=== PATIENT | male | born 1955 | race Caucasian/White ===

== ENCOUNTER 2020-08-22 13:19 | Outpatient (REF) | payer MEDICAID, SELFPAY | END 2020-08-22 13:20 | disposition home or self-care (01) | LOC: HO.LAB 13:19 | PROVIDERS: Visit Provider Internal Medicine | DX: Z20.828 Contact with and (suspected) exposure to other viral communicable diseases (principal) | CPT/HCPCS: U0003 ==

== ENCOUNTER 2020-08-28 13:30 | Outpatient (REF) | payer MEDICAID, SELFPAY | END 2020-08-28 13:31 | disposition home or self-care (01) | LOC: HO.LAB 13:30 | PROVIDERS: Visit Provider Internal Medicine | DX: Z20.828 Contact with and (suspected) exposure to other viral communicable diseases (principal) | CPT/HCPCS: C9803; U0003 ==

== ENCOUNTER 2020-09-04 11:57 | Outpatient (REF) | payer MEDICAID, SELFPAY | END 2020-09-04 11:58 | disposition home or self-care (01) | LOC: HO.LAB 11:57 | PROVIDERS: Visit Provider Internal Medicine | DX: Z20.828 Contact with and (suspected) exposure to other viral communicable diseases (principal) | CPT/HCPCS: C9803; U0003 ==

== ENCOUNTER 2020-09-10 16:50 | Outpatient (REF) | payer MEDICAID, SELFPAY | END 2020-09-10 16:51 | disposition home or self-care (01) | LOC: HO.LAB 16:50 | PROVIDERS: Visit Provider Internal Medicine | DX: Z20.828 Contact with and (suspected) exposure to other viral communicable diseases (principal) | CPT/HCPCS: C9803; U0003 ==

== ENCOUNTER 2020-09-25 16:22 | Outpatient (REF) | payer MEDICAID, SELFPAY | END 2020-09-25 16:23 | disposition home or self-care (01) | LOC: HO.LAB 16:22 | PROVIDERS: Visit Provider Internal Medicine | DX: Z20.828 Contact with and (suspected) exposure to other viral communicable diseases (principal) | CPT/HCPCS: C9803; U0003 ==

== ENCOUNTER 2023-07-01 13:19 | Inpatient (IN) | payer OTHER, SELFPAY ==
[2023-07-01] VITALS (7 sets, daily range): BP systolic 129–178; BP diastolic 69–86; PULSE 84–97; RESP 16–28; TEMP 36–38.4; O2SAT 86–93; BMI 39.5; BMI 40.5
--- NOTE | ~2023-07-01 | CT_ITS ---
EXAMINATION: CT HEAD WITHOUT CONTRAST CLINICAL INFORMATION: Fall, unknown head strike/LOC. COMPARISON: None available. TECHNIQUE: Contiguous axial imaging was performed from the skull base to vertex without intravenous administration of contrast. This CT examination was performed using dose optimization techniques as appropriate, variously including the following: *Automated exposure control *Adjustment of mA and/or kV according to patient size (this includes techniques or standardized protocols for targeted exams where dose is matched to indication/reason for exam; i.e. extremities or head) *Use of iterative reconstruction technique DLP: 809 mGy-cm FINDINGS: There is no acute intra-axial, extra-axial bleed, masses or midline shift. There is no acute infarction evolution. There is no edema. The interiano to white matter consolidation is is maintained normal. The lateral ventricles are symmetrical in size and configuration without enlargement. Bone windows reveal no calvarial abnormality. There is no scalp soft tissue abnormality. Bone windows reveal diffuse mucoperiosteal thickening of bilateral maxillary, ethmoid, right frontal and bilateral sphenoid sinuses. CT/CT head/brain wo IV con IMPRESSION: No acute intracranial process seen.
--- NOTE | ~2023-07-01 | XR_ITS ---
EXAMINATION: XR CHEST CLINICAL INFORMATION: Shortness of breath; Covid positive COMPARISON: None available. TECHNIQUE: Frontal view of the chest was obtained. FINDINGS: The lungs are normally expanded. There is mild ill-defined opacity in the left lower lung, partially obscuring the cardiac border, which may represent mild infiltrate. The lungs are otherwise clear. There is no pleural disease. The mediastinum is stable. There is no vascular congestion. XR/XR chest 1V IMPRESSION: Mild patchy infiltrate in the left lower lung, suspicious for pneumonia.
--- NOTE | ~2023-07-01 | XR_ITS ---
EXAMINATION: XR CHEST CLINICAL INFORMATION: Follow-up hypoxia. Covid infection. COMPARISON: Previous chest x-ray 07/01/2023 TECHNIQUE: Frontal view of the chest was obtained. FINDINGS: The cardiac and mediastinal contours are stable. The lung volumes are low. There is question of a small left base infiltrate. This is not appreciably changed from previous exam. No pleural effusion or pneumothorax. Degenerative changes of the spine. XR/XR chest 1V IMPRESSION: Question small left base infiltrate similar to previous exam.
--- NOTE | 2023-07-01 13:51 | ECG_ITS ---
Test Reason : sob/covid Blood Pressure : / mmHG Vent. Rate : 088 BPM Atrial Rate : 088 BPM P-R Int : 142 ms QRS Dur : 076 ms QT Int : 318 ms P-R-T Axes : 023 057 037 degrees QTc Int : 384 ms Normal sinus rhythm Normal ECG No previous ECGs available Referred By: Mari Alvarez Electronically Signed By:FLORENCIO BASS
[2023-07-01] MEDS: Acetaminophen 325 MG TABLET 975 MG PO (13:54)
--- NOTE | 2023-07-01 14:07 | ED_ITS ---
HPI - URI/Sore Throat General Chief Complaint: Upper Respiratory Symptoms Stated Complaint: DIFF BREATHING,FLIPPED OUT OF CHAIR,+COVID Time Seen by Provider: 07/01/23 13:50 Source: patient and EMS Mode of arrival: EMS Limitations: no limitations History of Present Illness HPI Narrative: 67 yo male with PMHx of CHF, HTN, DM presents to the ED via EMS complaining of fevers, congestion difficulty breathing, and dry cough, worsening since testing positive for COVID yesterday. Today he reports trying to sit in his chair when he slipped onto his buttocks. He does not know if he hit his head or lost consciousness. He reports his friend called EMS. Denies headache, dizziness, vision changes, chest pain, neck pain, back pain, abdominal pain, LE pain or edema. Not on LOC. Not on home O2. Related Data Allergies Allergy/AdvReac Type Severity Reaction Status Date / Time No Known Allergies Allergy Verified 07/01/23 13:51 Review of Systems 2 Review of Systems: Constitutional: + fever, No chills, No fatigue, No malaise, + generalized weakness ENT/Mouth: No ear pain, No hearing loss,? No nasal congestion, No sinus pain, No rhinorrhea Eyes: No eye pain, No swelling, No redness, No vision changes, No foreign body, No discharge Cardio: No chest pain, No palpitations, No dyspnea on exertion, No orthopnea, No edema Respiratory: + SOB, + cough, No sputum, No wheezing, + dyspnea, No hemoptysis, No smoke exposure GI: No nausea, No vomiting, No hematemesis, No abdominal pain, No diarrhea, No constipation, No hematochezia, No melena : No irregular bleeding, No dysuria, No frequency, No urgency, No hesitancy, No hematuria, No flank pain MSK: No back pain, No neck pain, No joint pain, No myalgias Skin: No skin lesions, No rashes Neuro: No weakness, No numbness, No paresthesias, No LOC, No dizziness, No headache Psych: No anxiety/panic, No depression, No SI/HI, No AH/VH Heme/Lymph: No bruising, No bleeding, No lymphadenopathy Endocrine: No Polyuria, No Polydipsia, No Temperature Intolerance Yes all other systems are reviewed and are negative [facility] Past Medical History Attestation statement: The following information was validated with the patient. Source: old records reviewed and nursing notes reviewed Social History Social History Advance Directives: No Advance Directives Information Provided: No Physical Exam 2 Vital Signs: Vital Signs: Last Vital Signs Temp 98.8 F 07/01/23 16:45 Pulse 86 07/01/23 16:45 Resp 22 H 07/01/23 16:45 BP 129/69 07/01/23 16:45 Pulse Ox 92 07/01/23 16:45 O2 Del Method Nasal Cannula 07/01/23 16:45 O2 Flow Rate 3 07/01/23 16:45 BMI result Body Mass Index 39.5 Vital signs notable for fever. Not tachycardic. General: Diaphoretic. Speaking in complete sentences. No acute distress. On 3L O2. Skin: Warm and dry. No rashes or lesions. Head: Normocephalic, atraumatic. EENT: Injected conjunctiva. Sclera is anicteric. PERRLA. EOM intact. Nasal septum is midline. Nares patent bilaterally. Moist mucous membranes. Controlling secretions. Neck: Supple without LAD. Normal ROM. Trachea midline.? Cardiac: Chest wall symmetric. Regular rate and rhythm. S1 and S1 appreciated. No MRG. No JVD. Lungs: CTA bilaterally. No rales, rhonchi, or wheezes. Normal respiratory effort without accessory muscle use. Abdomen: No visible lesions or scars. Soft, non-tender, non-distended. No rebound tenderness or guarding. Normoactive BS x4. Ext: Upper and lower extremities atraumatic. Full ROM throughout. Strength 5/5 throughout. Capillary refill <2 seconds in all extremities. Pulses 2+ equal and bilateral. No edema, cyanosis, or clubbing. Neuro: Alert and oriented x3. Normal speech. CN 2-12 grossly intact. Strength 5/5 intact throughout.?Neurovascular intact distally. Psych: Appropriate mood and affect. Responds appropriately to questions.? Course Course Course Narrative: 1410-- EKG showing normal sinus rhythm, no acute ischemc process. 1446-- No leukocytosis, anemia (no priors to compare to). No electrolyte abnormalities requiring intervention. 1458-- Ddimer of 233. Age adjusted ddimer calculated and determined to be 89 >> VTE unlikely. CTA not indicated. > Troponin negative. BNP WNL. Lactic acid WNL. > COVID positive. Patient likely tachycardic and hypoxic secondary to viral illness. I do no not suspect sepsis at this time. 1646-- At this time, infection suspected. CXR showing possible PNA > abx ordered. Medications Administered Discontinued Medications Generic Name Dose Route Start Last Admin Trade Name Freq PRN Reason Stop Dose Admin Acetaminophen 975 mg 07/01/23 13:51 07/01/23 13:54 Acetaminophen 325 Mg Tablet PO 07/01/23 13:52 975 mg ONCE ONE Administration Medical Decision Making Medical Decision Making [facility] Narrative: 1407-- 67 yo male, COVID +, presenting with fevers, dyspnea, and cough x1 day PE: Diaphoretic. O2 sat 93 on 3L O2. Speaking in complete sentences. No signs of respiratory distress. Lungs CTA b/l. RRR. No LE edema. Negative parul's sign. Concern for covid, viral syndrome, bronchitis, pneumonia, PE, acute on chronic CHF, ACS, arrhythmia, electrolyte abnormality. Low suspicion for DVT, pnuemothorax, dissection, chest wall trauma, or flail chest. Plan: EKG, labs, ddimer, serology, imaging Differential Diagnosis Differential Diagnoses: The differential diagnosis associated with the presentation includes Concern for covid, viral syndrome, bronchitis, pneumonia, PE, acute on chronic CHF, ACS, arrhythmia, electrolyte abnormality. Low suspicion for DVT, pnuemothorax, dissection, chest wall trauma, or flail chest. Admission/Observation Consideration of admission/observation: Escalation of care including admission/observation considered This COVID + patient who is acutely hypoxic and febrile will be admitted. Consult Healthcare Provider Management of the patient was discussed with: Hospitalist (Dr. Yi Richter) Lab Data [facility] Lab Attestation statement: I reviewed the patient's lab results. As above. 07/01/23 14:20 07/01/23 14:20 Labs: Lab Results 07/01/23 07/01/23 07/01/23 Range/Units 14:19 14:20 14:27 WBC 9.1 (4.8-10.8) X10*3/uL RBC 4.25 L (4.60-5.80) X10*6/uL Hgb 12.7 L (14.0-18.0) g/dl Hct 39.0 L (42.0-52.0) % MCV 91.8 (80.0-98.0) fL MCH 29.9 (27.0-33.0) pg MCHC 32.6 (31.0-36.0) g/dl RDW 14.3 (11.0-16.0) % Plt Count 164 (160-400) X10*3/uL MPV 9.7 (9.4-12.4) fL Immature Gran % (Auto) 0.8 H (0.0-0.4) % Neut % (Auto) 84.5 H (45-73) % Lymph % (Auto) 6.6 L (20-40) % [place] % (Auto) 7.4 (2-11) % Eos % (Auto) 0.4 (0-4) % Baso % (Auto) 0.3 (0-2) % Lymph # (Auto) 0.6 L (1.2-4.9) X10*3/uL [place] # (Auto) 0.7 (0.1-1.2) X10*3/uL Eos # (Auto) 0.0 (0.0-0.4) X10*3/uL Baso # (Auto) 0.0 (0.0-0.2) X10*3/uL Abs Immat Gran (auto) 0.07 H (0.00-0.03) X10*3/uL Absolute Neuts (auto) 7.7 (2.0-8.3) x10*3/uL Absolute Nucleated RBC 0.000 (0.0-0.012) X10*3/uL Nucleated RBC % (auto) 0.0 (0.0-0.2) /100WBC PT 12.8 (11.1-13.3) SEC INR 1.1 (0.9-1.1) D-Dimer High Sensitivty 233 NG/ML Sodium 137 (135-145) mmol/L Potassium 4.1 (3.3-5.1) mmol/L Chloride 101 (96-108) mmol/L Carbon Dioxide 28 (22-29) mmol/L Anion Gap 12 (12-20) BUN 12 (9-16) mg/dL Creatinine 1.34 (0.5-1.4) mg/dL Estim Creat Clear Calc 67.6 Estimated GFR 53 Random Glucose 189 H (60-115) mg/dL Lactic Acid 1.8 (0.5-2.0) mmol/L Calcium 9.8 (8.4-10.2) mg/dL Total Bilirubin 0.5 (0.0-1.0) mg/dL AST 16 (5-37) U/L ALT 18 (0-40) U/L Alkaline Phosphatase 43 (39-117) U/L Total Creatine Kinase 167 (38-174) U/L Troponin I High Sens 3.2 (<3.5-35.0) ng/L B-Natriuretic Peptide 34 (<100) pg/mL Total Protein 7.6 (6.5-8.0) g/dL Albumin 4.3 (3.5-5.0) g/dL COVID-19 (ARNIE) Positive A (Negative) COVID-19 Clin Com See Note Influenza Type A (SONYA) Negative (Negative) Influenza Type B (SONYA) Negative (Negative) Influenza A & B Note See Note Independent Interpretation I performed an independent interpretation of an: EKG (Normal sinus rhythm at rate of 88 bpm, QT of 318, no ischemic changes) and Plain X-Ray (Infiltrates noted to left lower lung, agree with radiologist's interpretation) Radiology Impression Discussion of test interpretation with radiology: I have reviewed the radiologist's reading. Radiologist Impression: XR chest 1V IMPRESSION: Mild patchy infiltrate in the left lower lung, suspicious for pneumonia. Independent Historian Clinical information obtained from an independent historian. History obtained from or confirmed by: EMS Prescription Management I considered prescription management with: Antibiotic Chronic Conditions Patient?s care impacted by: Diabetes and Hypertension Core Measures AMI core measures followed: Yes Measure exclusions: not indicated Discharge Plan Discharge Clinical Impression: COVID, Hypoxia, Pneumonia Patient Disposition: Admitted As Inpatient
--- NOTE | 2023-07-01 14:22 | PC.NURSE ---
diaphoretic in room, oxygen at 87-92% on 3L nasal cannula. iv established, labs drawn and sent
[2023-07-01 14:26] LABS: MANUAL DIFF FLAG NO
[2023-07-01 14:29] LABS: Basophils Percent Auto 0.3 % (0-2); Eosinophils Percent Auto 0.4 % (0-4); Hemoglobin 12.7 g/dl (14.0-18.0); Imm Gran Abs Auto 0.07 X10*3/uL (0.00-0.03); Imm Gran Pct Auto 0.8 % (0.0-0.4); Lymphocytes Absolute Auto 0.6 X10*3/uL (1.2-4.9); Lymphocytes Percent Auto 6.6 % (20-40); Mean Corpuscular HGB Conc 32.6 g/dl (31.0-36.0); Mean Corpuscular Hemoglobin 29.9 pg (27.0-33.0); Mean Corpuscular Volume 91.8 fL (80.0-98.0); Mean Platelet Volume 9.7 fL (9.4-12.4); Monocytes Absolute Auto 0.7 X10*3/uL (0.1-1.2); Monocytes Percent Auto 7.4 % (2-11); Neutrophils Absolute Auto 7.7 x10*3/uL (2.0-8.3); Neutrophils Percent Auto 84.5 % (45-73); Platelet Count 164 X10*3/uL (160-400); Red Blood Count 4.25 X10*6/uL (4.60-5.80); Red Cell Distribution Width 14.3 % (11.0-16.0); White Blood Count 9.1 X10*3/uL (4.8-10.8)
[2023-07-01 14:40] LABS: Lactic Acid 1.8 mmol/L (0.5-2.0)
[2023-07-01 14:44] LABS: Alanine Aminotransferase 18 U/L (0-40); Albumin Level 4.3 g/dL (3.5-5.0); Alkaline Phosphatase 43 U/L (39-117); Anion Gap 12 (12-20); Aspartate Amino Transferase 16 U/L (5-37); Bilirubin Total 0.5 mg/dL (0.0-1.0); Blood Urea Nitrogen 12 mg/dL (9-16); Calcium 9.8 mg/dL (8.4-10.2); Carbon Dioxide 28 mmol/L (22-29); Chloride 101 mmol/L (96-108); Creatinine Clr Calc Pharmacy 67.6; Estimated Glomerular Filt Rate 53; Glucose Random 189 mg/dL (60-115); Potassium 4.1 mmol/L (3.3-5.1); Sodium 137 mmol/L (135-145); Total Protein 7.6 g/dL (6.5-8.0)
[2023-07-01 14:50] LABS: B Type Natriuretic Peptide 34 pg/mL (<100)
[2023-07-01 14:51] LABS: Troponin-I High Sensitivity 3.2 ng/L (<3.5-35.0)
[2023-07-01 14:52] LABS: IDNOW Serial# BCCEAD1C; Influenza A Negative (Negative); Influenza B2 Negative (Negative)
[2023-07-01 14:55] LABS: D Dimer High Sensitivity 233 NG/ML
[2023-07-01 15:04] LABS: COVID-19 Test Positive (Negative); IDNOW Serial# 9DB6401D
[2023-07-01 16:51] LABS: INTERNATIONAL NORM RATIO 1.1 (0.9-1.1); Prothrombin Time 12.8 SEC (11.1-13.3)
--- NOTE | 2023-07-01 16:54 | PC.NURSE ---
alert and oriented, pt resting quietly in room. plan for admission. denies any pain or distress at this time
--- NOTE | 2023-07-01 16:56 | P.HPHOSP_ITS ---
History of Present Illness Date of Service: 07/01/23 Attending physician on admission: Amando Wilson Chief Complaint: SOB Pt is a 67-year-old male with a PMH significant for?wkt-pndntse-bbfxfgbox diabetes type 2, HTN, HLD, arthritis of the back, unspecified CHF, and depression who presents to the ED with?worsening SOB, difficulty breathing, and nonproductive cough x2 days. Patient states his symptoms began upon waking 2 days prior when he felt congested and had a nonproductive cough, runny nose, and subjective fever and chills. SOB, difficulty breathing, and cough progressively worsened. Patient took an at home COVID test earlier this morning and tested positive. He then presented to the ED today d/t his difficulty breathing. Patient has a previous 5 pack year smoking history, quit 15 years ago. Does not carry a diagnosis of either asthma or COPD, not on home inhalers or home O2. Denies chest pain/pressure, palpitations. No noticeable increase in fatigue or tiredness. Denies nausea, vomiting, diarrhea, abdominal pain. The patient lives in a sober home with 28 other residence. In the ED the patient was febrile at 01:01 0.2, tachypneic up to 28, elevated heart rate up to 97, and hypertensive up to 151/86, satting as low as 86% O2 on RA. Patient placed on 3 L NC with improvement to 92% O2. Labs were significant for H&H of 12.7/39.0, random glucose 189. No leukocytosis. Electrolytes WNL. Lactic acid WNL 01.8. Hepatic function WNL. CPK WNL at 167. Troponin negative. BNP WNL at 34. Patient tested positive for COVID. Patient tested negative for influenza types A and B. Coags normal. CXR showed mild patchy infiltrate in the lower left lung suspicious for pneumonia. CT of head showed no acute intracranial process. EKG demonstrated normal sinus rhythm without evidence of ST elevations or depressions. Pt was treated with acetaminophen, ceftriaxone, and azithromycin. Pt will be admitted to the hospital for treatment and further evaluation of acute hypoxic respiratory failure in the setting of COVID infection. Review of Systems 2 Review of Systems: Increasing shortness of breath and difficulty breathing x2 days Nonproductive cough Subjective fever, chills Rhinorrhea Denies nausea, vomiting, diarrhea, abdominal pain No chest pain/pressure, palpitations Yes all other systems are reviewed and are negative PMFSH Social History Household Members: Other Housing: Other Housing Other:: sober house Do you presently have visiting nurse or other home services: No Patient Tobacco Use Status: Former Tobacco user Tobacco use type: Cigarette Smoked in Last 30 Days: No e-Cigarette/Vaping Use: Never Used Use of substances other than those prescribed or required for medical reasons: Yes Substance Use Type: Former Substance User Last Used Substance Other:: 5 years ago Currently Displaying Signs/Symptoms of Drug Intoxication Withdrawal: No Have you been hit, kicked, punched, or otherwise hurt by someone within the past year? If so, by whom?: No Do you feel safe in your current relationship?: Yes Is there a partner from a previous relationship who is making you feel unsafe now?: No Are you made to feel afraid or neglected: No Advance Directives: No Advance Directives Information Provided: No Do you have thoughts of harming others: None Do you have a plan to hurt others: No Plan Recently lost weight without trying: No Eating poorly because of decreased appetite: No Nutrition Risks: No Nutritional Risk Poor oral hygiene: No service: No Meds Allergies Allergy/AdvReac Type Severity Reaction Status Date / Time No Known Allergies Allergy Verified 07/01/23 13:51 Active Medications: Current Medications Ceftriaxone Sodium 1 gm/ (Sodium Chloride) 50 mls @ 100 mls/hr IV ONCE ONE Stop: 07/01/23 17:14 Azithromycin 500 mg/ Sodium (Chloride) 250 mls @ 125 mls/hr IV ONCE ONE Stop: 07/01/23 18:44 Home Medications Medication Instructions Recorded Confirmed Last Taken Type acetaminophen 500 mg tablet 1,000 mg PO TID PRN PAIN 07/01/23 07/01/23 06/30/23 History amitriptyline 25 mg tablet 25 mg PO BEDTIME 07/01/23 07/01/23 06/30/23 History celecoxib 200 mg capsule 200 mg PO DAILY 07/01/23 07/01/23 06/30/23 History cholecalciferol (vitamin D3) 25 25 mcg PO DAILY 07/01/23 07/01/23 06/30/23 History mcg (1,000 unit) capsule (Vitamin D3) escitalopram oxalate 10 mg tablet 10 mg PO DAILY 07/01/23 07/01/23 06/30/23 History fenofibric acid (choline) 135 mg 135 mg PO DAILY 07/01/23 07/01/23 06/30/23 History capsule,delayed release labetalol 200 mg tablet 200 mg PO BID 07/01/23 07/01/23 06/30/23 History lurasidone 40 mg tablet 40 mg PO DAILY 07/01/23 07/01/23 06/30/23 History metformin 500 mg tablet 500 mg PO BID 07/01/23 07/01/23 06/30/23 History methocarbamol 750 mg tablet 750 mg PO DAILY 07/01/23 07/01/23 06/30/23 History mometasone 0.1 % topical ointment 1 appl topical BID 07/01/23 07/01/23 06/30/23 History multivitamin (One Daily 1 tab PO DAILY 07/01/23 07/01/23 06/30/23 History Multivitamin tablet) nifedipine 30 mg tablet,extended 30 mg PO DAILY 07/01/23 07/01/23 06/30/23 History release 24 hr oxybutynin chloride 10 mg 10 mg PO DAILY 07/01/23 07/01/23 06/30/23 History tablet,extended release 24 hr tacrolimus 0.1 % topical ointment 1 appl topical BID 07/01/23 07/01/23 06/30/23 History thiamine HCl (vitamin B1) 100 mg 100 mg PO DAILY 07/01/23 07/01/23 06/30/23 History tablet trazodone 100 mg tablet 200 mg PO BEDTIME insomina 07/01/23 07/01/23 06/30/23 History Physical Exam 2 Vital Signs and Narrative: Vital Signs: Last Vital Signs Temp 98.8 F 07/01/23 16:45 Pulse 86 07/01/23 16:45 Resp 22 H 07/01/23 16:45 BP 129/69 07/01/23 16:45 Pulse Ox 92 07/01/23 16:45 O2 Del Method Nasal Cannula 07/01/23 16:45 O2 Flow Rate 3 07/01/23 16:45 BMI result Body Mass Index 39.5 Constitutional: Alert, in no acute distress. Mental Status: Oriented to person, place and time. Eyes: Pupils are equal, round, and reactive to light. Ear, Nose, and Throat: Oropharynx clear, mucous membranes moist. Ears and nose without deformities. Trachea midline. Respiratory: Clear to auscultation bilaterally. No wheezing, rales, or rhonchi. Cardiovascular: S1, S2 regular. No murmurs, rubs, or gallops. Gastrointestinal: Abdomen soft, non-tender, obese. Normal bowel sounds. Neurologic: Cranial nerves II-XII are grossly intact bilaterally. No focal neurological deficits. Moves all extremities spontaneously. Skin: Warm, dry. Musculoskeletal: No cyanosis or clubbing. Extremities: No edema. Psychiatric: Normal mood and affect. Results Labs 07/01/23 14:20 07/01/23 14:20 Labs: Laboratory Results - last 24 hr 07/01/23 07/01/23 07/01/23 14:19 14:20 14:27 MCV 91.8 MCH 29.9 MCHC 32.6 RDW 14.3 Plt Count 164 MPV 9.7 Immature Gran % (Auto) 0.8 H Neut % (Auto) 84.5 H Lymph % (Auto) 6.6 L [place] % (Auto) 7.4 Eos % (Auto) 0.4 Baso % (Auto) 0.3 Lymph # (Auto) 0.6 L [place] # (Auto) 0.7 Eos # (Auto) 0.0 Baso # (Auto) 0.0 Abs Immat Gran (auto) 0.07 H Absolute Neuts (auto) 7.7 Absolute Nucleated RBC 0.000 Nucleated RBC % (auto) 0.0 PT 12.8 INR 1.1 D-Dimer High Sensitivty 233 Anion Gap 12 Estim Creat Clear Calc 67.6 Estimated GFR 53 Random Glucose 189 H Lactic Acid 1.8 Calcium 9.8 Total Bilirubin 0.5 AST 16 ALT 18 Alkaline Phosphatase 43 Total Creatine Kinase 167 B-Natriuretic Peptide 34 Total Protein 7.6 Albumin 4.3 COVID-19 (ARNIE) Positive A COVID-19 Clin Com See Note Influenza Type A (SONYA) Negative Influenza Type B (SONYA) Negative Influenza A & B Note See Note Imaging Radiologist's Impressions: Impressions Head CT 07/01/23 15:30 IMPRESSION: No acute intracranial process seen. Chest X-Ray 07/01/23 15:46 IMPRESSION: Mild patchy infiltrate in the left lower lung, suspicious for pneumonia. Assessment and Plan (1) Hypoxia: Status: Acute (2) COVID: Status: Acute Plan Pt is a 67-year-old male with a PMH significant for?chz-snyeyjl-fbxpdrgsx diabetes type 2, HTN, HLD, arthritis of the back, unspecified CHF, and depression who presents to the ED with?worsening SOB, difficulty breathing, and nonproductive cough x2 days. Pt will be admitted to the hospital for treatment and further evaluation of acute hypoxic respiratory failure in the setting of COVID infection. Acute hypoxic respiratory failure in the setting of COVID infection Patient experiencing symptoms x2 days Setting as low as 84% on RA, not on home oxygen Will treat with DuoNebs, dexamethasone, remdesivir Benzonatate, guaifenesin for cough Titrate supplemental O2 >92, wean as tolerated Sepsis in the setting of community-acquired pneumonia CXR showing mild patchy infiltrate in the lower left lung, suspicious for pneumonia Procalcitonin positive at 0.15 Will treat with ceftriaxone, azithromycin, started 07/01/2023 Pt meets non-severe sepsis criteria: Pneumonia, tachycardia, tachypnea, fever; lactic acid 1.8 Elevated D-Dimer Patient's D-dimer mildly elevated at 233 Likely secondary to COVID/pneumonia infection Patient not experiencing chest pain Low suspicion for PE, CTA not indicated HTN Continue home meds HLD Continue home meds Inx-tfulpye-czrnxmzhw diabetes type [address] on sliding scale insulin Diabetic diet Mood disorder Continue home meds Obesity class 2 Encourage weight loss Full Code Attending:? DVT Prophylaxis: Lovenox Pt will require a hospitalization of at least two nights for treatment of?acute hypoxic respiratory failure in the setting of COVID and pneumonia infections. Patient be treated with supplemental oxygen, IV steroids, breathing treatments, and IV antibiotics. Time Spent With Patient Time: Total time managing care of this patient today ____ minutes. Quality Stroke Does the patient have a stroke diagnosis?: No VTE Prior VTE?: No VTE Risk Level:: Medical - moderate - high VTE Device Contraindication: Treatment Not Indicated VTE Drug Contraindication: N/A - Med Ordered
--- NOTE | 2023-07-01 17:11 | PHA.MEDREC ---
Pharmacy Consult ? Medication Reconciliation Pharmacy has completed the medication reconciliation. Patient confirmed medicaitons based on claim history. Report only taking methocarbamol once a day. Both tacrolimus and mometasone he reported he tales BID. Reported taking trazodone 2 tabs every night. Vane Mota, PharmD
[2023-07-01] MEDS: cefTRIAXone sodium 1 GM in 0.9 % Sodium Chloride 50 ML IV (17:37)
[2023-07-01 17:57] LABS: Procalcitonin 0.15 ng/mL
--- NOTE | 2023-07-01 19:37 | PC.NURSE ---
This RN attempted to call report to new RN.
--- NOTE | 2023-07-01 19:59 | PC.NURSE ---
This RN took over assignment at 1900.
[2023-07-01] MEDS: oxyBUTYnin chloride ER 5 MG TAB.ER.24 10 MG PO (20:02)
[2023-07-01] MEDS: Thiamine HCL 100 MG TABLET PO (20:02)
[2023-07-01] MEDS: Multivitamin TABLET 1 TAB PO (20:03)
[2023-07-01] MEDS: Escitalopram Oxalate 10 MG TABLET PO (20:03)
[2023-07-01] MEDS: Cholecalciferol (Vitamin D3) 25 MCG TABLET PO (20:04)
[2023-07-01] MEDS: methocarbamoL 750 MG TABLET PO (20:04)
[2023-07-01] MEDS: dexAMETHasone sod phosphate 4 MG/ML VIAL 6 MG IVPUSH (20:05)
[2023-07-01] MEDS: Albuterol/Iprat 2.5/0.5MG 3 ML AMPUL.NEB INHALE (20:59)
[2023-07-01] MEDS: Celecoxib 200 MG CAPSULE PO (21:23)
[2023-07-01] MEDS: Amitriptyline HCl 25 MG TABLET PO (21:23)
[2023-07-01] MEDS: Labetalol HCL 200 MG TABLET PO (21:23)
[2023-07-01] MEDS: traZODone HCL 100 MG TABLET 200 MG PO (21:23)
[2023-07-01] MEDS: NIFEdipine ER 30 MG TAB.ER.24 PO (21:24)
[2023-07-01] MEDS: Lurasidone HCl 40 MG TABLET PO (21:24)
[2023-07-01] MEDS: Insulin Lispro 100 UNIT/ML 3 ML VIAL SUBCUT (21:24)
[2023-07-01] MEDS: Azithromycin 500 MG in 0.9 % Sodium Chloride 250 ML 125 MG IV (21:39)
[2023-07-02 00:11] LABS: Glucose, Whole Blood 173 mg/dL (60-115)
[2023-07-02] MEDS: Remdesivir 200 MG in 0.9 % Sodium Chloride 210 ML 105 MG IV (00:11)
[2023-07-02] MEDS: 0.9 % Sodium Chloride Flush 3 ML SYRINGE IVFLUSH ×3 (00:12→15:48)
[2023-07-02 04:00] VITALS: BP 164/78; PULSE 94; RESP 18; TEMP 36.4; O2SAT 93
[2023-07-02 07:17] LABS: Glucose, Whole Blood 181 mg/dL (60-115)
[2023-07-02 07:28] VITALS: BP 150/70; PULSE 78; RESP 20; TEMP 36.7; O2SAT 93
[2023-07-02] MEDS: Insulin Lispro 100 UNIT/ML 3 ML VIAL SUBCUT ×4 (08:12→21:16)
[2023-07-02] MEDS: Multivitamin TABLET 1 TAB PO (08:13)
[2023-07-02] MEDS: Lurasidone HCl 40 MG TABLET PO (08:13)
[2023-07-02] MEDS: methocarbamoL 750 MG TABLET PO (08:13)
[2023-07-02] MEDS: Escitalopram Oxalate 10 MG TABLET PO (08:13)
[2023-07-02] MEDS: NIFEdipine ER 30 MG TAB.ER.24 PO (08:13)
[2023-07-02] MEDS: Cholecalciferol (Vitamin D3) 25 MCG TABLET PO (08:13)
[2023-07-02] MEDS: oxyBUTYnin chloride ER 5 MG TAB.ER.24 10 MG PO (08:13)
[2023-07-02] MEDS: Celecoxib 200 MG CAPSULE PO (08:13)
[2023-07-02] MEDS: Labetalol HCL 200 MG TABLET PO ×2 (08:14→21:17)
[2023-07-02] MEDS: Thiamine HCL 100 MG TABLET PO (08:14)
[2023-07-02] MEDS: dexAMETHasone sod phosphate 4 MG/ML VIAL 6 MG IVPUSH (08:14)
[2023-07-02 10:57] LABS: Glucose, Whole Blood 263 mg/dL (60-115)
[2023-07-02] MEDS: Albuterol/Iprat 2.5/0.5MG 3 ML AMPUL.NEB INHALE ×2 (11:28→15:12)
[2023-07-02 11:29] VITALS: PULSE 66; RESP 16; O2SAT 93
--- NOTE | 2023-07-02 13:12 | MHC.CM.PN ---
IMM 07/02. Pt admitted with hypoxia, covid-19 infection. Pt lives at the [facility] ([facility]), and is independent/self-care, pt had no previous services/DME. D/C plan is to return to the [facility] when medically cleared. Pt will need assistance with transport. No HCP, pt declined when offered. PCP: Bharat Magallanes
--- NOTE | 2023-07-02 14:59 | HO.PM.IMPN ---
Subjective Subjective Date of Service: 07/02/23 Interval History: Seen and evaluated Feels better Still on O2 supplement No fever or chills Review of Systems Review of Systems: Yes all other systems are reviewed and are negative Physical Exam Vital Signs: Vital Signs: Last Vital Signs Temp 98.0 F 07/02/23 07:28 Pulse 66 07/02/23 11:29 Resp 16 07/02/23 11:29 BP 150/70 H 07/02/23 07:28 Pulse Ox 93 07/02/23 07:28 O2 Del Method Nasal Cannula 07/02/23 07:28 O2 Flow Rate 3 07/02/23 07:28 BMI result Body Mass Index 40.5 Const: Other: Constitutional : Awake, interactive, not in distress Neck : Normal inspection, Supple Cardiovascular : RRR, no JVP, no lower extremity edema Respiratory : fair bilateral air entry, basal fine, scattered wheezes , on O2 supplement Gastrointestinal: soft, lax, Normal bowel sounds, Non tender Skin : Warm, Dry Neurological : Alert & oriented x3, No focal deficit Objective Data Active Medications Acetaminophen (Acetaminophen 325 Mg Tablet) 650 mg PO Q6H PRN PRN Reason: Pain, Mild (Pain Scale 1-3) Albuterol/Ipratropium (Albuterol/Iprat 2.5/0.5mg 3 Ml Ampul.Neb) 3 ml INHALE RQ4H WHILE AWAKE [facility] Last Admin: 07/02/23 11:28 Dose: 3 ml Documented By: DHEERAJ Amitriptyline HCl (Amitriptyline Hcl 25 Mg Tablet) 25 mg PO BEDTIME [facility] Last Admin: 07/01/23 21:23 Dose: 25 mg Documented By: PEREZ Benzonatate (Benzonatate 100 Mg Capsule) 100 mg PO TID PRN PRN Reason: Cough Celecoxib (Celecoxib 200 Mg Capsule) 200 mg PO DAILY [facility] Last Admin: 07/02/23 08:13 Dose: 200 mg Documented By: MARVA Dexamethasone Sodium Phosphate (Dexamethasone Sod Phosphate 4 Mg/Ml Vial) 6 mg IVPUSH DAILY [facility] Last Admin: 07/02/23 08:14 Dose: 6 mg Documented By: MARVA Dextrose (Dextrose 50 % 25 Gm/50 Ml Syringe) 25 gm IVPUSH Q15M PRN; Protocol PRN Reason: per Hypoglycemia Standing Ord. Docusate Sodium (Docusate Sodium 100 Mg Capsule) 100 mg PO DAILY PRN PRN Reason: Constipation Escitalopram Oxalate (Escitalopram Oxalate 10 Mg Tablet) 10 mg PO DAILY [facility] Last Admin: 07/02/23 08:13 Dose: 10 mg Documented By: MARVA Glucose (Glucose Gel 15 Gm Gel..Gram.) 15 gm PO Q15M PRN; Protocol PRN Reason: per Hypoglycemia Standing Ord. Guaifenesin/Dextromethorphan (Guaifenesin Dm 200/20/10 Ml 10 Ml Syrup) 10 ml PO Q4H PRN PRN Reason: Cough Remdesivir 100 mg/ Sodium (Chloride) 230 mls @ 115 mls/hr IV Q24H [facility] Stop: 07/05/23 22:59 Ceftriaxone Sodium 1 gm/ (Sodium Chloride) 50 mls @ 100 mls/hr IV Q24H [facility] Azithromycin 500 mg/ Sodium (Chloride) 250 mls @ 125 mls/hr IV Q24H [facility] Last Infusion: 07/02/23 00:28 Dose: Infused Documented By: SUKUMAR Insulin Human Lispro (Insulin Lispro 100 Unit/Ml 3 Ml Vial) 0 unit SUBCUT QIDACHS [facility]; Protocol Last Admin: 07/02/23 12:19 Dose: 6 unit Documented By: MARVA Labetalol HCl (Labetalol Hcl 200 Mg Tablet) 200 mg PO BID [facility]; Protocol Last Admin: 07/02/23 08:14 Dose: 200 mg Documented By: MARVA Lurasidone HCl (Lurasidone Hcl 40 Mg Tablet) 40 mg PO DAILY [facility] Last Admin: 07/02/23 08:13 Dose: 40 mg Documented By: MARVA Methocarbamol (Methocarbamol 750 Mg Tablet) 750 mg PO DAILY [facility] Last Admin: 07/02/23 08:13 Dose: 750 mg Documented By: MARVA Multivitamins/Vitamin C (Multivitamin Tablet) 1 tab PO DAILY [facility] Last Admin: 07/02/23 08:13 Dose: 1 tab Documented By: MARVA Nifedipine (Nifedipine Er 30 Mg Tab.Er.24) 30 mg PO DAILY [facility]; Protocol Last Admin: 07/02/23 08:13 Dose: 30 mg Documented By: MARVA Non-Formulary Medication (Fenofibric Acid (Choline)) 135 mg PO DAILY [facility] Oxybutynin Chloride (Oxybutynin Chloride Er 5 Mg Tab.Er.24) 10 mg PO DAILY [facility] Last Admin: 07/02/23 08:13 Dose: 10 mg Documented By: MARVA Sodium Chloride (0.9 % Sodium Chloride Flush 3 Ml Syringe) 3 ml IVFLUSH QSHIFT [facility] Last Admin: 07/02/23 08:18 Dose: 3 ml Documented By: MARVA Thiamine HCl (Thiamine Hcl 100 Mg Tablet) 100 mg PO DAILY [facility] Last Admin: 07/02/23 08:14 Dose: 100 mg Documented By: MARVA Trazodone HCl (Trazodone Hcl 100 Mg Tablet) 200 mg PO BEDTIME [facility] Last Admin: 07/01/23 21:23 Dose: 200 mg Documented By: SUKUMAR Vitamin D (Cholecalciferol (Vitamin D3) 25 Mcg Tablet) 25 mcg PO DAILY [facility] Last Admin: 07/02/23 08:13 Dose: 25 mcg Documented By: MARVA Labs 07/01/23 14:20 07/01/23 14:20 Labs: Laboratory Results - last 24 hr 07/01/23 07/01/23 07/01/23 14:19 14:20 21:06 PT 12.8 INR 1.1 POC Glucose 173 H Total Creatine Kinase 167 Procalcitonin 0.15 COVID-19 (ARNIE) Positive A COVID-19 Clin Com See Note 07/02/23 07/02/23 07:05 10:52 PT INR POC Glucose 181 H 263 H Total Creatine Kinase Procalcitonin COVID-19 (ARNIE) COVID-19 Clin Com Assessment and Plan (1) Pneumonia: Status: Acute (2) Hypoxia: Status: Acute (3) COVID: Status: Acute (4) Acute hypoxemic respiratory failure: Status: Acute (5) Sepsis: Status: Acute Plan Pt is a 67-year-old male with a PMH significant for?zvm-emzpobb-jvtfkqeom diabetes type 2, HTN, HLD, arthritis of the back, unspecified CHF, and depression who presents to the ED with?worsening SOB, difficulty breathing, and nonproductive cough x2 days. Pt will be admitted to the hospital for treatment and further evaluation of acute hypoxic respiratory failure in the setting of COVID infection. Acute hypoxic respiratory failure in the setting of COVID infection DuoNebs, dexamethasone, remdesivir Benzonatate, guaifenesin for cough wean O2 as tolerated Sepsis in the setting of community-acquired pneumonia CXR showing mild patchy infiltrate in the lower left lung ceftriaxone, azithromycin, started 07/01/2023 follow cultures Elevated D-Dimer Likely secondary to COVID/pneumonia infection not PE HTN Continue home meds HLD Continue home meds Obd-kzxqhye-svpowyekq diabetes type 2 Hold metformin sliding scale insulin Diabetic diet Mood disorder Continue home meds Obesity class 2 Encourage weight loss Full Code DVT Prophylaxis: Lovenox Pt will require a hospitalization overnight for treatment of?acute hypoxic respiratory failure in the setting of COVID and pneumonia infections. Time Spent With Patient Time: Total time managing care of this patient today ____ minutes. Quality Stroke Does the patient have a stroke diagnosis?: No VTE Prior VTE?: No VTE Risk Level:: Medical - moderate - high VTE Device Contraindication: Treatment Not Indicated VTE Drug Contraindication: N/A - Med Ordered
[2023-07-02 15:18] VITALS: BP 159/85; PULSE 71; RESP 19; TEMP 37.1; O2SAT 91
--- NOTE | 2023-07-02 16:02 | MHC.CM.PN ---
This CM received a phone call from Neena Peguero the Case Manger at [facility] ([facility]) (credit front office developer [phone]) (cell phone [phone]). She states that Gee has lived there for about 3 years now and that she has concerns that he has been declining over the last 6 months, and thinks he may need to go to an assisted living facility. Neena states that pt does not shower or care for himself properly and has open oozing and bleeding wounds on his legs that he scratches at and it is a concern for them. Neena states that pt does not have anyone, and his is a resident at [facility] in [place]. Neena also states that pt has told them if he was to leave the sober house, he would go to the nearest place he could find and start drinking again. Neena states that prior to hospital admission, they were going to recommend he go to an assisted living facility.
[2023-07-02 16:20] LABS: Glucose, Whole Blood 218 mg/dL (60-115)
[2023-07-02] MEDS: cefTRIAXone sodium 1 GM in 0.9 % Sodium Chloride 50 ML IV (16:44)
[2023-07-02] MEDS: Azithromycin 500 MG in 0.9 % Sodium Chloride 250 ML 125 MG IV (19:14)
[2023-07-02 19:30] VITALS: BP 158/79; PULSE 74; RESP 18; TEMP 37; O2SAT 91
[2023-07-02 20:48] LABS: Glucose, Whole Blood 259 mg/dL (60-115)
[2023-07-02] MEDS: Remdesivir 100 MG in 0.9 % Sodium Chloride 230 ML 115 MG IV (21:17)
[2023-07-02] MEDS: Amitriptyline HCl 25 MG TABLET PO (21:17)
[2023-07-02] MEDS: traZODone HCL 100 MG TABLET 200 MG PO (21:17)
[2023-07-03] VITALS (7 sets, daily range): BP systolic 147–156; BP diastolic 72–79; PULSE 55–77; RESP 16–20; TEMP 36.4–37.2; O2SAT 91–95
[2023-07-03] MEDS: 0.9 % Sodium Chloride Flush 3 ML SYRINGE IVFLUSH ×4 (00:50→20:37)
[2023-07-03 06:33] LABS: Hematocrit 37.7 % (42.0-52.0); Hemoglobin 12.1 g/dl (14.0-18.0); Mean Corpuscular HGB Conc 32.1 g/dl (31.0-36.0); Mean Corpuscular Hemoglobin 29.7 pg (27.0-33.0); Mean Corpuscular Volume 92.4 fL (80.0-98.0); Mean Platelet Volume 9.8 fL (9.4-12.4); Platelet Count 170 X10*3/uL (160-400); Red Blood Count 4.08 X10*6/uL (4.60-5.80); Red Cell Distribution Width 14.4 % (11.0-16.0); White Blood Count 6.5 X10*3/uL (4.8-10.8)
[2023-07-03 06:44] LABS: Anion Gap 11 (12-20); Blood Urea Nitrogen 19 mg/dL (9-16); Carbon Dioxide 27 mmol/L (22-29); Chloride 105 mmol/L (96-108); Creatinine Clr Calc Pharmacy 96.6; Estimated Glomerular Filt Rate > 60; Glucose Random 137 mg/dL (60-115); Potassium 4.3 mmol/L (3.3-5.1); Sodium 139 mmol/L (135-145)
[2023-07-03 07:15] LABS: Glucose, Whole Blood 139 mg/dL (60-115)
[2023-07-03] MEDS: NIFEdipine ER 30 MG TAB.ER.24 PO (08:41)
[2023-07-03] MEDS: methocarbamoL 750 MG TABLET PO (08:41)
[2023-07-03] MEDS: Labetalol HCL 200 MG TABLET PO ×2 (08:41→20:36)
[2023-07-03] MEDS: Cholecalciferol (Vitamin D3) 25 MCG TABLET PO (08:41)
[2023-07-03] MEDS: Thiamine HCL 100 MG TABLET PO (08:41)
[2023-07-03] MEDS: Lurasidone HCl 40 MG TABLET PO (08:41)
[2023-07-03] MEDS: Celecoxib 200 MG CAPSULE PO (08:41)
[2023-07-03] MEDS: Multivitamin TABLET 1 TAB PO (08:41)
[2023-07-03] MEDS: Escitalopram Oxalate 10 MG TABLET PO (08:41)
[2023-07-03] MEDS: oxyBUTYnin chloride ER 5 MG TAB.ER.24 10 MG PO (08:41)
[2023-07-03] MEDS: dexAMETHasone sod phosphate 4 MG/ML VIAL 6 MG IVPUSH (08:42)
[2023-07-03] MEDS: Albuterol/Iprat 2.5/0.5MG 3 ML AMPUL.NEB INHALE ×2 (08:50→19:17)
[2023-07-03 11:03] LABS: Glucose, Whole Blood 255 mg/dL (60-115)
[2023-07-03] MEDS: Insulin Lispro 100 UNIT/ML 3 ML VIAL SUBCUT ×3 (12:26→20:35)
--- NOTE | 2023-07-03 12:41 | MHC.CM.PN ---
Spoke w/Pt. RE D/C planning: He confirms he lives in a [facility]ber [facility] and has resided there for 3 years. He also confirms that his residency is contingent on their discretion. Gee states he has paid his rent up until July 24, 2023 and that the residents are to pay monthly. He states he previously was ambulatory w/some difficulty D/T OA in his back and a screw in his ankle, and is very happy living at the Sober House. He states he also gets psych/therapy support which he indicates is crucial to his continued sobriety. He informed this CM that Neena Peguero from the home called him yesterday and only said that eventually he should go to an assisted living. He does not agree w/this as again, he is dependent on the psych/therapeutic support services available to him for his sobriety. Gee stated he has been to a SNF in the past, at [facility] and is definitely open to going again for inpatient STR rehab again for a short duration, but adamant about returning to his Sober House following STR (if he ends up going to STR). He also is open to VNA services helping him at the Sober House and indicates that no one from the Sober House has ever offered these services to him in the past to help him w/either functional rehabilitation or nursing care. This CM explained that the plan will remain to follow along w/the physicians' recommendations and work together for a safe D/C disposition when appropriate. Gee in agreement. CM to follow.
[2023-07-03 15:55] LABS: Glucose, Whole Blood 245 mg/dL (60-115)
--- NOTE | 2023-07-03 16:02 | P.PNIM_ITS ---
Subjective Subjective Date of Service: 07/03/23 Interval History: Seen and evaluated Feels better, coughing less Still on O2 supplement but less No fever or chills eating well Review of Systems Review of Systems: Yes all other systems are reviewed and are negative Physical Exam 2 Vital Signs: Vital Signs: Last Vital Signs Temp 98.6 F 07/03/23 15:34 Pulse 77 07/03/23 15:34 Resp 18 07/03/23 15:34 BP 151/77 H 07/03/23 15:34 Pulse Ox 91 L 07/03/23 15:34 O2 Del Method Nasal Cannula 07/03/23 15:34 O2 Flow Rate 1 07/03/23 15:34 BMI result Body Mass Index 40.5 Const: Other: Constitutional : Awake, interactive, not in distress Neck : Normal inspection, Supple Cardiovascular : RRR, no JVP, no lower extremity edema Respiratory : fair bilateral air entry, basal fine, scattered wheezes , on O2 supplement Gastrointestinal: soft, lax, Normal bowel sounds, Non tender Skin : Warm, Dry Neurological : Alert & oriented x3, No focal deficit Objective Data Active Medications Acetaminophen (Acetaminophen 325 Mg Tablet) 650 mg PO Q6H PRN PRN Reason: Pain, Mild (Pain Scale 1-3) Albuterol/Ipratropium (Albuterol/Iprat 2.5/0.5mg 3 Ml Ampul.Neb) 3 ml INHALE RQ4H WHILE AWAKE [facility] Last Admin: 07/03/23 12:04 Dose: Not Given Documented By: DHEERAJ Non-Admin Reason: Patient Asleep Amitriptyline HCl (Amitriptyline Hcl 25 Mg Tablet) 25 mg PO BEDTIME [facility] Last Admin: 07/02/23 21:17 Dose: 25 mg Documented By: JAMES Benzonatate (Benzonatate 100 Mg Capsule) 100 mg PO TID PRN PRN Reason: Cough Celecoxib (Celecoxib 200 Mg Capsule) 200 mg PO DAILY [facility] Last Admin: 07/03/23 08:41 Dose: 200 mg Documented By: MARVA Dexamethasone Sodium Phosphate (Dexamethasone Sod Phosphate 4 Mg/Ml Vial) 6 mg IVPUSH DAILY [facility] Last Admin: 07/03/23 08:42 Dose: 6 mg Documented By: MARVA Dextrose (Dextrose 50 % 25 Gm/50 Ml Syringe) 25 gm IVPUSH Q15M PRN; Protocol PRN Reason: per Hypoglycemia Standing Ord. Docusate Sodium (Docusate Sodium 100 Mg Capsule) 100 mg PO DAILY PRN PRN Reason: Constipation Escitalopram Oxalate (Escitalopram Oxalate 10 Mg Tablet) 10 mg PO DAILY [facility] Last Admin: 07/03/23 08:41 Dose: 10 mg Documented By: MARVA Glucose (Glucose Gel 15 Gm Gel..Gram.) 15 gm PO Q15M PRN; Protocol PRN Reason: per Hypoglycemia Standing Ord. Guaifenesin/Dextromethorphan (Guaifenesin Dm 200/20/10 Ml 10 Ml Syrup) 10 ml PO Q4H PRN PRN Reason: Cough Remdesivir 100 mg/ Sodium (Chloride) 230 mls @ 115 mls/hr IV Q24H [facility] Stop: 07/05/23 22:59 Last Infusion: 07/03/23 00:50 Dose: Infused Documented By: EMILY Ceftriaxone Sodium 1 gm/ (Sodium Chloride) 50 mls @ 100 mls/hr IV Q24H [facility] Last Infusion: 07/02/23 17:29 Dose: Infused Documented By: JAMES Azithromycin 500 mg/ Sodium (Chloride) 250 mls @ 125 mls/hr IV Q24H [facility] Last Infusion: 07/02/23 21:22 Dose: Infused Documented By: JAMES Insulin Human Lispro (Insulin Lispro 100 Unit/Ml 3 Ml Vial) 0 unit SUBCUT QIDACHS [facility]; Protocol Last Admin: 07/03/23 12:26 Dose: 6 unit Documented By: MARVA Labetalol HCl (Labetalol Hcl 200 Mg Tablet) 200 mg PO BID [facility]; Protocol Last Admin: 07/03/23 08:41 Dose: 200 mg Documented By: MARVA Lurasidone HCl (Lurasidone Hcl 40 Mg Tablet) 40 mg PO DAILY [facility] Last Admin: 07/03/23 08:41 Dose: 40 mg Documented By: MARVA Methocarbamol (Methocarbamol 750 Mg Tablet) 750 mg PO DAILY [facility] Last Admin: 07/03/23 08:41 Dose: 750 mg Documented By: MARVA Multivitamins/Vitamin C (Multivitamin Tablet) 1 tab PO DAILY [facility] Last Admin: 07/03/23 08:41 Dose: 1 tab Documented By: MARVA Nifedipine (Nifedipine Er 30 Mg Tab.Er.24) 30 mg PO DAILY [facility]; Protocol Last Admin: 07/03/23 08:41 Dose: 30 mg Documented By: MARVA Non-Formulary Medication (Fenofibric Acid (Choline)) 135 mg PO DAILY [facility] Oxybutynin Chloride (Oxybutynin Chloride Er 5 Mg Tab.Er.24) 10 mg PO DAILY [facility] Last Admin: 07/03/23 08:41 Dose: 10 mg Documented By: MARVA Sodium Chloride (0.9 % Sodium Chloride Flush 3 Ml Syringe) 3 ml IVFLUSH QSHIFT [facility] Last Admin: 07/03/23 08:41 Dose: 3 ml Documented By: MARVA Thiamine HCl (Thiamine Hcl 100 Mg Tablet) 100 mg PO DAILY [facility] Last Admin: 07/03/23 08:41 Dose: 100 mg Documented By: MARVA Trazodone HCl (Trazodone Hcl 100 Mg Tablet) 200 mg PO BEDTIME [facility] Last Admin: 07/02/23 21:17 Dose: 200 mg Documented By: JAMES Vitamin D (Cholecalciferol (Vitamin D3) 25 Mcg Tablet) 25 mcg PO DAILY [facility] Last Admin: 07/03/23 08:41 Dose: 25 mcg Documented By: MARVA Labs 07/03/23 06:19 07/03/23 06:19 Labs: Laboratory Results - last 24 hr 07/02/23 07/02/23 07/03/23 16:16 20:45 06:19 MCV 92.4 MCH 29.7 MCHC 32.1 RDW 14.4 Plt Count 170 MPV 9.8 Absolute Nucleated RBC 0.000 Nucleated RBC % (auto) 0.0 Anion Gap 11 L Estim Creat Clear Calc 96.6 Estimated GFR > 60 POC Glucose 218 H 259 H Random Glucose 137 H Calcium 9.0 D 07/03/23 07/03/23 07/03/23 07:08 10:50 15:32 MCV MCH MCHC RDW Plt Count MPV Absolute Nucleated RBC Nucleated RBC % (auto) Anion Gap Estim Creat Clear Calc Estimated GFR POC Glucose 139 H 255 H 245 H Random Glucose Calcium Microbiology Microbiology Results: Microbiology 07/01/23 14:27 Blood Culture - Preliminary Blood - Venous No growth after 24 hours. 07/01/23 14:20 Blood Culture - Preliminary Blood - Venous No growth after 24 hours. Assessment and Plan (1) Sepsis: Status: Acute (2) Acute hypoxemic respiratory failure: Status: Acute (3) Hypoxia: Status: Acute (4) COVID: Status: Acute (5) Pneumonia: Status: Acute Plan Pt is a 67-year-old male with a PMH significant for?mev-ibmnvfv-lowzczycx diabetes type 2, HTN, HLD, arthritis of the back, unspecified CHF, and depression who presents to the ED with?worsening SOB, difficulty breathing, and nonproductive cough x2 days. Pt will be admitted to the hospital for treatment and further evaluation of acute hypoxic respiratory failure in the setting of COVID infection. Acute hypoxic respiratory failure in the setting of COVID infection improving DuoNebs, dexamethasone, remdesivir Benzonatate, guaifenesin for cough wean O2 as tolerated Sepsis in the setting of community-acquired pneumonia CXR showing mild patchy infiltrate in the lower left lung ceftriaxone, azithromycin, started 07/01/2023 follow cultures Elevated D-Dimer Likely secondary to COVID/pneumonia infection not PE HTN Continue home meds HLD Continue home meds Det-yqybdaw-bunhjzful diabetes type 2 Hold metformin sliding scale insulin Diabetic diet Mood disorder Continue home meds Obesity class 2 Encourage weight loss Full Code DVT Prophylaxis: Lovenox Pt will require a hospitalization overnight for treatment of?acute hypoxic respiratory failure in the setting of COVID and pneumonia infections. Time Spent With Patient Time: Total time managing care of this patient today ____ minutes. Quality Stroke Does the patient have a stroke diagnosis?: No VTE Prior VTE?: No VTE Risk Level:: Medical - moderate - high VTE Device Contraindication: Treatment Not Indicated VTE Drug Contraindication: N/A - Med Ordered
[2023-07-03] MEDS: cefTRIAXone sodium 1 GM in 0.9 % Sodium Chloride 50 ML IV (16:07)
[2023-07-03] MEDS: Azithromycin 500 MG in 0.9 % Sodium Chloride 250 ML 125 MG IV (18:17)
[2023-07-03 20:14] LABS: Glucose, Whole Blood 211 mg/dL (60-115)
[2023-07-03] MEDS: traZODone HCL 100 MG TABLET 200 MG PO (20:36)
[2023-07-03] MEDS: Amitriptyline HCl 25 MG TABLET PO (20:36)
[2023-07-03] MEDS: Remdesivir 100 MG in 0.9 % Sodium Chloride 230 ML 115 MG IV (20:37)
[2023-07-04] VITALS (8 sets, daily range): BP systolic 141–177; BP diastolic 68–85; PULSE 56–86; RESP 18–20; TEMP 36.2–37; O2SAT 91–95
[2023-07-04 07:23] LABS: Hematocrit 35.4 % (42.0-52.0); Hemoglobin 11.3 g/dl (14.0-18.0); Mean Corpuscular HGB Conc 31.9 g/dl (31.0-36.0); Mean Corpuscular Hemoglobin 29.7 pg (27.0-33.0); Mean Corpuscular Volume 92.9 fL (80.0-98.0); Platelet Count 179 X10*3/uL (160-400); Red Blood Count 3.81 X10*6/uL (4.60-5.80); Red Cell Distribution Width 14.4 % (11.0-16.0); White Blood Count 6.3 X10*3/uL (4.8-10.8)
[2023-07-04 07:33] LABS: Anion Gap 13 (12-20); Blood Urea Nitrogen 21 mg/dL (9-16); C Reactive Protein 3.85 mg/dL (< or = 0.50); Calcium 8.5 mg/dL (8.4-10.2); Carbon Dioxide 31 mmol/L (22-29); Chloride 101 mmol/L (96-108); Estimated Glomerular Filt Rate > 60; Glucose Random 132 mg/dL (60-115); Lactate Dehydrogenase 178 U/L (118-273); Potassium 3.8 mmol/L (3.3-5.1); Sodium 141 mmol/L (135-145)
[2023-07-04 07:39] LABS: Glucose, Whole Blood 138 mg/dL (60-115)
[2023-07-04] MEDS: Thiamine HCL 100 MG TABLET PO (08:43)
[2023-07-04] MEDS: Cholecalciferol (Vitamin D3) 25 MCG TABLET PO (08:43)
[2023-07-04] MEDS: Lurasidone HCl 40 MG TABLET PO (08:43)
[2023-07-04] MEDS: methocarbamoL 750 MG TABLET PO (08:43)
[2023-07-04] MEDS: Escitalopram Oxalate 10 MG TABLET PO (08:43)
[2023-07-04] MEDS: Labetalol HCL 200 MG TABLET PO ×2 (08:43→21:18)
[2023-07-04] MEDS: dexAMETHasone sod phosphate 4 MG/ML VIAL 6 MG IVPUSH (08:43)
[2023-07-04] MEDS: oxyBUTYnin chloride ER 5 MG TAB.ER.24 10 MG PO (08:43)
[2023-07-04] MEDS: Celecoxib 200 MG CAPSULE PO (08:43)
[2023-07-04] MEDS: Multivitamin TABLET 1 TAB PO (08:43)
[2023-07-04] MEDS: 0.9 % Sodium Chloride Flush 3 ML SYRINGE IVFLUSH ×3 (08:44→21:19)
[2023-07-04] MEDS: metFORMIN HCl 500 MG TABLET PO ×2 (09:26→21:18)
[2023-07-04] MEDS: NIFEdipine ER 30 MG TAB.ER.24 60 MG PO (09:26)
--- NOTE | 2023-07-04 11:12 | MHC.CM.PN ---
EMR reviewed and per MD rounds, pt is not medically cleared for D/C today. CM will continue to follow.
[2023-07-04] MEDS: Albuterol/Iprat 2.5/0.5MG 3 ML AMPUL.NEB INHALE ×3 (11:17→19:02)
[2023-07-04 11:22] LABS: Glucose, Whole Blood 204 mg/dL (60-115)
[2023-07-04] MEDS: Lactulose 20 GM/30 ML SOLUTION PO (12:22)
[2023-07-04] MEDS: Insulin Lispro 100 UNIT/ML 3 ML VIAL SUBCUT ×3 (12:23→21:18)
--- NOTE | 2023-07-04 13:18 | HO.PM.IMPN ---
Subjective Subjective Date of Service: 07/04/23 Interval History: Seen and evaluated Feels better, coughing less Still on O2 supplement but weaning down No fever or chills eating well Review of Systems Review of Systems: Yes all other systems are reviewed and are negative Physical Exam Vital Signs: Vital Signs: Last Vital Signs Temp 97.4 F 07/04/23 07:15 Pulse 86 07/04/23 11:18 Resp 18 07/04/23 11:18 BP 177/85 H 07/04/23 07:15 Pulse Ox 95 07/04/23 07:15 O2 Del Method Nasal Cannula 07/04/23 07:15 O2 Flow Rate 1 07/04/23 07:15 BMI result Body Mass Index 40.5 Const: Other: Constitutional : Awake, interactive, not in distress Neck : Normal inspection, Supple Cardiovascular : RRR, no JVP, no lower extremity edema Respiratory : fair bilateral air entry, basal fine, scattered wheezes , on O2 supplement Gastrointestinal: soft, lax, Normal bowel sounds, Non tender Skin : Warm, Dry Neurological : Alert & oriented x3, No focal deficit Objective Data Active Medications Acetaminophen (Acetaminophen 325 Mg Tablet) 650 mg PO Q6H PRN PRN Reason: Pain, Mild (Pain Scale 1-3) Albuterol/Ipratropium (Albuterol/Iprat 2.5/0.5mg 3 Ml Ampul.Neb) 3 ml INHALE RQ4H WHILE AWAKE [facility] Last Admin: 07/04/23 11:17 Dose: 3 ml Documented By: BLAKATIE Amitriptyline HCl (Amitriptyline Hcl 25 Mg Tablet) 25 mg PO BEDTIME [facility] Last Admin: 07/03/23 20:36 Dose: 25 mg Documented By: LYSZ Benzonatate (Benzonatate 100 Mg Capsule) 100 mg PO TID PRN PRN Reason: Cough Celecoxib (Celecoxib 200 Mg Capsule) 200 mg PO DAILY [facility] Last Admin: 07/04/23 08:43 Dose: 200 mg Documented By: JEOVANY Dexamethasone Sodium Phosphate (Dexamethasone Sod Phosphate 4 Mg/Ml Vial) 6 mg IVPUSH DAILY [facility] Last Admin: 07/04/23 08:43 Dose: 6 mg Documented By: BROB Dextrose (Dextrose 50 % 25 Gm/50 Ml Syringe) 25 gm IVPUSH Q15M PRN; Protocol PRN Reason: per Hypoglycemia Standing Ord. Docusate Sodium (Docusate Sodium 100 Mg Capsule) 100 mg PO DAILY PRN PRN Reason: Constipation Escitalopram Oxalate (Escitalopram Oxalate 10 Mg Tablet) 10 mg PO DAILY [facility] Last Admin: 07/04/23 08:43 Dose: 10 mg Documented By: JEOVANY Glucose (Glucose Gel 15 Gm Gel..Gram.) 15 gm PO Q15M PRN; Protocol PRN Reason: per Hypoglycemia Standing Ord. Guaifenesin/Dextromethorphan (Guaifenesin Dm 200/20/10 Ml 10 Ml Syrup) 10 ml PO Q4H PRN PRN Reason: Cough Remdesivir 100 mg/ Sodium (Chloride) 230 mls @ 115 mls/hr IV Q24H [facility] Stop: 07/05/23 22:59 Last Infusion: 07/03/23 22:44 Dose: Infused Documented By: DIAMOND Ceftriaxone Sodium 1 gm/ (Sodium Chloride) 50 mls @ 100 mls/hr IV Q24H [facility] Last Infusion: 07/03/23 16:42 Dose: Infused Documented By: MARVA Azithromycin 500 mg/ Sodium (Chloride) 250 mls @ 125 mls/hr IV Q24H [facility] Last Infusion: 07/03/23 20:38 Dose: Infused Documented By: DIAMOND Insulin Human Lispro (Insulin Lispro 100 Unit/Ml 3 Ml Vial) 0 unit SUBCUT QIDACHS [facility]; Protocol Last Admin: 07/04/23 12:23 Dose: 4 unit Documented By: JEOVANY Labetalol HCl (Labetalol Hcl 200 Mg Tablet) 200 mg PO BID [facility]; Protocol Last Admin: 07/04/23 08:43 Dose: 200 mg Documented By: JEOVANY Lurasidone HCl (Lurasidone Hcl 40 Mg Tablet) 40 mg PO DAILY [facility] Last Admin: 07/04/23 08:43 Dose: 40 mg Documented By: JEOVANY Metformin HCl (Metformin Hcl 500 Mg Tablet) 500 mg PO BID [facility] Last Admin: 07/04/23 09:26 Dose: 500 mg Documented By: JEOVANY Methocarbamol (Methocarbamol 750 Mg Tablet) 750 mg PO DAILY [facility] Last Admin: 07/04/23 08:43 Dose: 750 mg Documented By: JEOVANY Multivitamins/Vitamin C (Multivitamin Tablet) 1 tab PO DAILY [facility] Last Admin: 07/04/23 08:43 Dose: 1 tab Documented By: JEOVANY Nifedipine (Nifedipine Er 30 Mg Tab.Er.24) 60 mg PO DAILY [facility]; Protocol Last Admin: 07/04/23 09:26 Dose: 60 mg Documented By: JEOVANY Non-Formulary Medication (Fenofibric Acid (Choline)) 135 mg PO DAILY [facility] Oxybutynin Chloride (Oxybutynin Chloride Er 5 Mg Tab.Er.24) 10 mg PO DAILY [facility] Last Admin: 07/04/23 08:43 Dose: 10 mg Documented By: JEOVANY Sodium Chloride (0.9 % Sodium Chloride Flush 3 Ml Syringe) 3 ml IVFLUSH QSHIFT [facility] Last Admin: 07/04/23 08:44 Dose: 3 ml Documented By: JEOVANY Thiamine HCl (Thiamine Hcl 100 Mg Tablet) 100 mg PO DAILY [facility] Last Admin: 07/04/23 08:43 Dose: 100 mg Documented By: JEOVANY Trazodone HCl (Trazodone Hcl 100 Mg Tablet) 200 mg PO BEDTIME [facility] Last Admin: 07/03/23 20:36 Dose: 200 mg Documented By: DIAMOND Vitamin D (Cholecalciferol (Vitamin D3) 25 Mcg Tablet) 25 mcg PO DAILY [facility] Last Admin: 07/04/23 08:43 Dose: 25 mcg Documented By: JEOVANY Labs 07/04/23 06:26 07/04/23 06:26 Labs: Laboratory Results - last 24 hr 07/03/23 07/03/23 07/04/23 15:32 20:05 06:26 MCV 92.9 MCH 29.7 MCHC 31.9 RDW 14.4 Plt Count 179 MPV 10.0 Absolute Nucleated RBC 0.000 Nucleated RBC % (auto) 0.0 Anion Gap 13 Estim Creat Clear Calc 102.0 Estimated GFR > 60 POC Glucose 245 H 211 H Random Glucose 132 H Calcium 8.5 Lactate Dehydrogenase 178 C-Reactive Protein 3.85 H 07/04/23 07/04/23 07:13 11:00 MCV MCH MCHC RDW Plt Count MPV Absolute Nucleated RBC Nucleated RBC % (auto) Anion Gap Estim Creat Clear Calc Estimated GFR POC Glucose 138 H 204 H Random Glucose Calcium Lactate Dehydrogenase C-Reactive Protein Microbiology Microbiology Results: Microbiology 07/01/23 14:27 Blood Culture - Preliminary Blood - Venous No growth after 48 hours. 07/01/23 14:20 Blood Culture - Preliminary Blood - Venous No growth after 48 hours. Assessment and Plan (1) Sepsis: Status: Acute (2) Acute hypoxemic respiratory failure: Status: Acute (3) Pneumonia: Status: Acute Plan Pt is a 67-year-old male with a PMH significant for?[id number] diabetes type 2, HTN, HLD, arthritis of the back, unspecified CHF, and depression who presents to the ED with?worsening SOB, difficulty breathing, and nonproductive cough x2 days. Pt will be admitted to the hospital for treatment and further evaluation of acute hypoxic respiratory failure in the setting of COVID infection. Acute hypoxic respiratory failure in the setting of COVID infection improving DuoNebs, dexamethasone, remdesivir Benzonatate, guaifenesin for cough wean O2 as tolerated Sepsis in the setting of community-acquired pneumonia CXR showing mild patchy infiltrate in the lower left lung ceftriaxone, azithromycin, started 07/01/2023 negative cultures Elevated D-Dimer Likely secondary to COVID/pneumonia infection not PE HTN Continue home meds HLD Continue home meds [id number] diabetes type 2 Hold metformin sliding scale insulin Diabetic diet Mood disorder Continue home meds Obesity class 2 Encourage weight loss Full Code DVT Prophylaxis: Lovenox Pt will require a hospitalization overnight for treatment of?acute hypoxic respiratory failure in the setting of COVID and pneumonia infections. Time Spent With Patient Time: Total time managing care of this patient today ____ minutes. Quality Stroke Does the patient have a stroke diagnosis?: No VTE Prior VTE?: No VTE Risk Level:: Medical - moderate - high VTE Device Contraindication: Treatment Not Indicated VTE Drug Contraindication: N/A - Med Ordered
[2023-07-04 16:55] LABS: Glucose, Whole Blood 220 mg/dL (60-115)
[2023-07-04] MEDS: cefTRIAXone sodium 1 GM in 0.9 % Sodium Chloride 50 ML IV (17:27)
[2023-07-04 20:53] LABS: Glucose, Whole Blood 183 mg/dL (60-115)
[2023-07-04] MEDS: Azithromycin 500 MG in 0.9 % Sodium Chloride 250 ML 125 MG IV (21:16)
[2023-07-04] MEDS: traZODone HCL 100 MG TABLET 200 MG PO (21:18)
[2023-07-04] MEDS: Amitriptyline HCl 25 MG TABLET PO (21:18)
[2023-07-05] VITALS (10 sets, daily range): BP systolic 130–171; BP diastolic 70–81; PULSE 52–67; RESP 18–20; TEMP 36.2–36.8; O2SAT 93–97
[2023-07-05] MEDS: Remdesivir 100 MG in 0.9 % Sodium Chloride 230 ML 115 MG IV ×2 (00:15→22:23)
[2023-07-05 07:50] LABS: Glucose, Whole Blood 109 mg/dL (60-115)
[2023-07-05] MEDS: Albuterol/Iprat 2.5/0.5MG 3 ML AMPUL.NEB INHALE ×4 (08:00→20:00)
[2023-07-05] MEDS: Escitalopram Oxalate 10 MG TABLET PO (08:45)
[2023-07-05] MEDS: Cholecalciferol (Vitamin D3) 25 MCG TABLET PO (08:45)
[2023-07-05] MEDS: Lurasidone HCl 40 MG TABLET PO (08:45)
[2023-07-05] MEDS: NIFEdipine ER 30 MG TAB.ER.24 60 MG PO (08:45)
[2023-07-05] MEDS: Celecoxib 200 MG CAPSULE PO (08:45)
[2023-07-05] MEDS: Acetaminophen 325 MG TABLET 650 MG PO (08:45)
[2023-07-05] MEDS: Thiamine HCL 100 MG TABLET PO (08:45)
[2023-07-05] MEDS: metFORMIN HCl 500 MG TABLET PO ×2 (08:45→22:22)
[2023-07-05] MEDS: oxyBUTYnin chloride ER 5 MG TAB.ER.24 10 MG PO (08:45)
[2023-07-05] MEDS: guaiFENesin DM 200/20/10 ML 10 ML SYRUP PO (08:46)
[2023-07-05] MEDS: Multivitamin TABLET 1 TAB PO (08:46)
[2023-07-05] MEDS: dexAMETHasone sod phosphate 4 MG/ML VIAL 6 MG IVPUSH (08:46)
[2023-07-05] MEDS: methocarbamoL 750 MG TABLET PO (08:46)
[2023-07-05] MEDS: 0.9 % Sodium Chloride Flush 3 ML SYRINGE IVFLUSH ×2 (08:46→12:33)
[2023-07-05] MEDS: Labetalol HCL 200 MG TABLET PO ×2 (08:46→22:22)
[2023-07-05 11:44] LABS: Glucose, Whole Blood 177 mg/dL (60-115)
--- NOTE | 2023-07-05 12:05 | P.PNIM_ITS ---
Subjective Subjective Date of Service: 07/05/23 Interval History: so bimproving Physical Exam 2 Vital Signs: Vital Signs: Last Vital Signs Temp 97.3 F 07/05/23 07:35 Pulse 59 07/05/23 11:19 Resp 18 07/05/23 11:19 BP 171/81 H 07/05/23 07:35 Pulse Ox 95 07/05/23 07:35 O2 Del Method Nasal Cannula 07/05/23 07:35 O2 Flow Rate 2 07/05/23 07:35 BMI result Body Mass Index 40.5 General: AO X 3, no acute distress Resp: CTA bilateral, no accessory muscles used CVS: S1,S2,RRR GI: soft, non tender, non distended Neuro: motor grossly intact, alert Psych: appropriate affect, appropriate insight Objective Data Active Medications Acetaminophen (Acetaminophen 325 Mg Tablet) 650 mg PO Q6H PRN PRN Reason: Pain, Mild (Pain Scale 1-3) Last Admin: 07/05/23 08:45 Dose: 650 mg Documented By: HARRISON Albuterol/Ipratropium (Albuterol/Iprat 2.5/0.5mg 3 Ml Ampul.Neb) 3 ml INHALE RQ4H WHILE AWAKE [facility] Last Admin: 07/05/23 11:18 Dose: 3 ml Documented By: ROSAMARIA Amitriptyline HCl (Amitriptyline Hcl 25 Mg Tablet) 25 mg PO BEDTIME [facility] Last Admin: 07/04/23 21:18 Dose: 25 mg Documented By: KAREEN Benzonatate (Benzonatate 100 Mg Capsule) 100 mg PO TID PRN PRN Reason: Cough Celecoxib (Celecoxib 200 Mg Capsule) 200 mg PO DAILY [facility] Last Admin: 07/05/23 08:45 Dose: 200 mg Documented By: HARRISON Dexamethasone Sodium Phosphate (Dexamethasone Sod Phosphate 4 Mg/Ml Vial) 6 mg IVPUSH DAILY [facility] Last Admin: 07/05/23 08:46 Dose: 6 mg Documented By: HARRISON Dextrose (Dextrose 50 % 25 Gm/50 Ml Syringe) 25 gm IVPUSH Q15M PRN; Protocol PRN Reason: per Hypoglycemia Standing Ord. Docusate Sodium (Docusate Sodium 100 Mg Capsule) 100 mg PO DAILY PRN PRN Reason: Constipation Escitalopram Oxalate (Escitalopram Oxalate 10 Mg Tablet) 10 mg PO DAILY [facility] Last Admin: 07/05/23 08:45 Dose: 10 mg Documented By: HARRISON Furosemide (Furosemide 40 Mg/4 Ml Vial) 40 mg IVPUSH ONCE ONE; Protocol Stop: 07/05/23 12:05 Glucose (Glucose Gel 15 Gm Gel..Gram.) 15 gm PO Q15M PRN; Protocol PRN Reason: per Hypoglycemia Standing Ord. Guaifenesin/Dextromethorphan (Guaifenesin Dm 200/20/10 Ml 10 Ml Syrup) 10 ml PO Q4H PRN PRN Reason: Cough Last Admin: 07/05/23 08:46 Dose: 10 ml Documented By: HARRISON Remdesivir 100 mg/ Sodium (Chloride) 230 mls @ 115 mls/hr IV Q24H [facility] Stop: 07/05/23 22:59 Last Infusion: 07/05/23 02:38 Dose: Infused Documented By: FERNANDA Ceftriaxone Sodium 1 gm/ (Sodium Chloride) 50 mls @ 100 mls/hr IV Q24H [facility] Last Infusion: 07/04/23 18:22 Dose: Infused Documented By: JEOVANY Azithromycin 500 mg/ Sodium (Chloride) 250 mls @ 125 mls/hr IV Q24H [facility] Last Infusion: 07/05/23 00:15 Dose: Infused Documented By: FERNANDA Insulin Human Lispro (Insulin Lispro 100 Unit/Ml 3 Ml Vial) 0 unit SUBCUT QIDACHS [facility]; Protocol Last Admin: 07/05/23 07:54 Dose: Not Given Documented By: HARRISON Non-Admin Reason: No Insulin Coverage Labetalol HCl (Labetalol Hcl 200 Mg Tablet) 200 mg PO BID [facility]; Protocol Last Admin: 07/05/23 08:46 Dose: 200 mg Documented By: HARRISON Lurasidone HCl (Lurasidone Hcl 40 Mg Tablet) 40 mg PO DAILY [facility] Last Admin: 07/05/23 08:45 Dose: 40 mg Documented By: HARRISON Metformin HCl (Metformin Hcl 500 Mg Tablet) 500 mg PO BID [facility] Last Admin: 07/05/23 08:45 Dose: 500 mg Documented By: HARRISON Methocarbamol (Methocarbamol 750 Mg Tablet) 750 mg PO DAILY [facility] Last Admin: 07/05/23 08:46 Dose: 750 mg Documented By: HARRISON Multivitamins/Vitamin C (Multivitamin Tablet) 1 tab PO DAILY [facility] Last Admin: 07/05/23 08:46 Dose: 1 tab Documented By: HARRISON Nifedipine (Nifedipine Er 30 Mg Tab.Er.24) 60 mg PO DAILY [facility]; Protocol Last Admin: 07/05/23 08:45 Dose: 60 mg Documented By: HARRISON Non-Formulary Medication (Fenofibric Acid (Choline)) 135 mg PO DAILY [facility] Oxybutynin Chloride (Oxybutynin Chloride Er 5 Mg Tab.Er.24) 10 mg PO DAILY [facility] Last Admin: 07/05/23 08:45 Dose: 10 mg Documented By: HARRISON Sodium Chloride (0.9 % Sodium Chloride Flush 3 Ml Syringe) 3 ml IVFLUSH QSHIFT [facility] Last Admin: 07/05/23 08:46 Dose: 3 ml Documented By: HARRISON Thiamine HCl (Thiamine Hcl 100 Mg Tablet) 100 mg PO DAILY [facility] Last Admin: 07/05/23 08:45 Dose: 100 mg Documented By: HARRISON Trazodone HCl (Trazodone Hcl 100 Mg Tablet) 200 mg PO BEDTIME [facility] Last Admin: 07/04/23 21:18 Dose: 200 mg Documented By: KAREEN Vitamin D (Cholecalciferol (Vitamin D3) 25 Mcg Tablet) 25 mcg PO DAILY [facility] Last Admin: 07/05/23 08:45 Dose: 25 mcg Documented By: HARRISON Labs 07/04/23 06:26 07/04/23 06:26 Labs: Laboratory Results - last 24 hr 07/04/23 07/04/23 07/05/23 16:46 20:22 07:22 POC Glucose 220 H 183 H 109 07/05/23 11:08 POC Glucose 177 H Assessment and Plan (1) Sepsis: Status: Acute (2) Acute hypoxemic respiratory failure: Status: Acute (3) Pneumonia: Status: Acute Plan 67M PMH DM2, HTN, HLD, morbid obesity, arthritis of the back, unspecified CHF, and depression who presented to the ED with?worsening SOB, difficulty breathing, and nonproductive cough x2 days. Acute hypoxic respiratory failure due to covid DuoNebs, dexamethasone, remdesivir Benzonatate, guaifenesin for cough wean O2 as tolerated history of pe no longer on coumadin HTN labetolol, nifedipine morbid obesity weight loss DM Hold metformin sliding scale insulin Diabetic diet Mood disorder latuda usnpecified chf ?acute decompensation empiric lasix 40mg iv once Full Code DVT Prophylaxis: Lovenox reason for continued hospitalization:weaning o2 Time Spent With Patient Time: Total time managing care of this patient today ____ minutes. Quality Stroke Does the patient have a stroke diagnosis?: No VTE Prior VTE?: Yes VTE Risk Level:: Medical - moderate - high VTE Device Contraindication: Treatment Not Indicated VTE Drug Contraindication: N/A - Med Ordered
[2023-07-05] MEDS: Furosemide 40 MG/4 ML VIAL IVPUSH (12:32)
[2023-07-05] MEDS: Benzonatate 100 MG CAPSULE PO ×2 (12:33→22:23)
[2023-07-05] MEDS: Docusate Sodium 100 MG CAPSULE PO (12:33)
[2023-07-05] MEDS: Enoxaparin Sodium 40 MG/0.4 ML SYRINGE SUBCUT (12:33)
[2023-07-05] MEDS: Insulin Lispro 100 UNIT/ML 3 ML VIAL SUBCUT ×3 (12:33→22:21)
[2023-07-05 16:10] LABS: Glucose, Whole Blood 203 mg/dL (60-115)
[2023-07-05 20:49] LABS: Glucose, Whole Blood 180 mg/dL (60-115)
[2023-07-05] MEDS: traZODone HCL 100 MG TABLET 200 MG PO (22:22)
[2023-07-05] MEDS: Amitriptyline HCl 25 MG TABLET PO (22:23)
[2023-07-06 03:30] VITALS: BP 165/77; PULSE 56; RESP 20; TEMP 36.3; O2SAT 96
[2023-07-06 07:46] LABS: Hematocrit 40.5 % (42.0-52.0); Hemoglobin 13.2 g/dl (14.0-18.0); Mean Corpuscular HGB Conc 32.6 g/dl (31.0-36.0); Mean Corpuscular Hemoglobin 29.6 pg (27.0-33.0); Mean Corpuscular Volume 90.8 fL (80.0-98.0); Mean Platelet Volume 9.7 fL (9.4-12.4); Platelet Count 203 X10*3/uL (160-400); Red Blood Count 4.46 X10*6/uL (4.60-5.80); Red Cell Distribution Width 13.9 % (11.0-16.0); White Blood Count 6.6 X10*3/uL (4.8-10.8)
[2023-07-06 07:57] VITALS: BP 134/77; PULSE 59; RESP 16; TEMP 36.2; O2SAT 95
[2023-07-06 08:04] LABS: Anion Gap 14 (12-20); Blood Urea Nitrogen 20 mg/dL (9-16); Calcium 8.9 mg/dL (8.4-10.2); Carbon Dioxide 30 mmol/L (22-29); Chloride 101 mmol/L (96-108); Estimated Glomerular Filt Rate > 60; Glucose Fasting 93 mg/dL (60-99); Magnesium 2.3 mg/dL (1.6-2.6); Potassium 3.6 mmol/L (3.3-5.1); Sodium 141 mmol/L (135-145)
[2023-07-06 08:11] LABS: Glucose, Whole Blood 89 mg/dL (60-115)
--- NOTE | 2023-07-06 10:22 | HO.PM.IMPN ---
Subjective Subjective Date of Service: 07/06/23 Interval History: sob imprving Physical Exam Vital Signs: Vital Signs: Last Vital Signs Temp 97.2 F 07/06/23 07:57 Pulse 59 07/06/23 07:57 Resp 16 07/06/23 07:57 BP 134/77 07/06/23 07:57 Pulse Ox 95 07/06/23 07:57 O2 Del Method Nasal Cannula 07/06/23 07:57 O2 Flow Rate 2 07/06/23 07:57 BMI result Body Mass Index 40.5 General: AO X 3, no acute distress Resp: CTA bilateral, no accessory muscles used CVS: S1,S2,RRR GI: soft, non tender, non distended Neuro: motor grossly intact, alert Psych: appropriate affect, appropriate insight Objective Data Active Medications Acetaminophen (Acetaminophen 325 Mg Tablet) 650 mg PO Q6H PRN PRN Reason: Pain, Mild (Pain Scale 1-3) Last Admin: 07/05/23 08:45 Dose: 650 mg Documented By: HARRISON Albuterol/Ipratropium (Albuterol/Iprat 2.5/0.5mg 3 Ml Ampul.Neb) 3 ml INHALE RQ4H WHILE AWAKE [facility] Last Admin: 07/06/23 08:17 Dose: Not Given Documented By: DHEERAJ Non-Admin Reason: Patient Asleep Amitriptyline HCl (Amitriptyline Hcl 25 Mg Tablet) 25 mg PO BEDTIME [facility] Last Admin: 07/05/23 22:23 Dose: 25 mg Documented By: FERNANDA Benzonatate (Benzonatate 100 Mg Capsule) 100 mg PO TID PRN PRN Reason: Cough Last Admin: 07/05/23 22:23 Dose: 100 mg Documented By: FERNANDA Comments: pt did not ask for guaifenesin, wrong patient for that response. Celecoxib (Celecoxib 200 Mg Capsule) 200 mg PO DAILY [facility] Last Admin: 07/05/23 08:45 Dose: 200 mg Documented By: HARRISON Dexamethasone Sodium Phosphate (Dexamethasone Sod Phosphate 4 Mg/Ml Vial) 6 mg IVPUSH DAILY [facility] Last Admin: 07/05/23 08:46 Dose: 6 mg Documented By: HARRISON Dextrose (Dextrose 50 % 25 Gm/50 Ml Syringe) 25 gm IVPUSH Q15M PRN; Protocol PRN Reason: per Hypoglycemia Standing Ord. Docusate Sodium (Docusate Sodium 100 Mg Capsule) 100 mg PO DAILY PRN PRN Reason: Constipation Last Admin: 07/05/23 12:33 Dose: 100 mg Documented By: HARRISON Enoxaparin Sodium (Enoxaparin Sodium 40 Mg/0.4 Ml Syringe) 40 mg SUBCUT Q24H [facility] Last Admin: 07/05/23 12:33 Dose: 40 mg Documented By: HARRISON Escitalopram Oxalate (Escitalopram Oxalate 10 Mg Tablet) 10 mg PO DAILY [facility] Last Admin: 07/05/23 08:45 Dose: 10 mg Documented By: HARRISON Glucose (Glucose Gel 15 Gm Gel..Gram.) 15 gm PO Q15M PRN; Protocol PRN Reason: per Hypoglycemia Standing Ord. Guaifenesin/Dextromethorphan (Guaifenesin Dm 200/20/10 Ml 10 Ml Syrup) 10 ml PO Q4H PRN PRN Reason: Cough Last Admin: 07/05/23 08:46 Dose: 10 ml Documented By: HARRISON Insulin Human Lispro (Insulin Lispro 100 Unit/Ml 3 Ml Vial) 0 unit SUBCUT QIDACHS [facility]; Protocol Last Admin: 07/06/23 08:50 Dose: Not Given Documented By: JOSIE Non-Admin Reason: No Insulin Coverage Labetalol HCl (Labetalol Hcl 200 Mg Tablet) 200 mg PO BID [facility]; Protocol Last Admin: 07/05/23 22:22 Dose: 200 mg Documented By: FERNANDA Lurasidone HCl (Lurasidone Hcl 40 Mg Tablet) 40 mg PO DAILY [facility] Last Admin: 07/05/23 08:45 Dose: 40 mg Documented By: HARRISON Metformin HCl (Metformin Hcl 500 Mg Tablet) 500 mg PO BID [facility] Last Admin: 07/05/23 22:22 Dose: 500 mg Documented By: FERNANDA Methocarbamol (Methocarbamol 750 Mg Tablet) 750 mg PO DAILY [facility] Last Admin: 07/05/23 08:46 Dose: 750 mg Documented By: HARRISON Multivitamins/Vitamin C (Multivitamin Tablet) 1 tab PO DAILY [facility] Last Admin: 07/05/23 08:46 Dose: 1 tab Documented By: HARRISON Nifedipine (Nifedipine Er 30 Mg Tab.Er.24) 60 mg PO DAILY [facility]; Protocol Last Admin: 07/05/23 08:45 Dose: 60 mg Documented By: HARRISON Non-Formulary Medication (Fenofibric Acid (Choline)) 135 mg PO DAILY [facility] Oxybutynin Chloride (Oxybutynin Chloride Er 5 Mg Tab.Er.24) 10 mg PO DAILY [facility] Last Admin: 07/05/23 08:45 Dose: 10 mg Documented By: HARRISON Sodium Chloride (0.9 % Sodium Chloride Flush 3 Ml Syringe) 3 ml IVFLUSH QSHIFT [facility] Last Admin: 07/05/23 12:33 Dose: 3 ml Documented By: HARRISON Thiamine HCl (Thiamine Hcl 100 Mg Tablet) 100 mg PO DAILY [facility] Last Admin: 07/05/23 08:45 Dose: 100 mg Documented By: HARRISON Trazodone HCl (Trazodone Hcl 100 Mg Tablet) 200 mg PO BEDTIME [facility] Last Admin: 07/05/23 22:22 Dose: 200 mg Documented By: FERNANDA Vitamin D (Cholecalciferol (Vitamin D3) 25 Mcg Tablet) 25 mcg PO DAILY [facility] Last Admin: 07/05/23 08:45 Dose: 25 mcg Documented By: HARRISON Labs 07/06/23 07:03 07/06/23 07:03 Labs: Laboratory Results - last 24 hr 07/05/23 07/05/23 07/05/23 11:08 16:04 20:44 MCV MCH MCHC RDW Plt Count MPV Absolute Nucleated RBC Nucleated RBC % (auto) Anion Gap Estim Creat Clear Calc Estimated GFR POC Glucose 177 H 203 H 180 H Fasting Glucose Calcium Magnesium 07/06/23 07/06/23 07:03 07:57 MCV 90.8 MCH 29.6 MCHC 32.6 RDW 13.9 Plt Count 203 MPV 9.7 Absolute Nucleated RBC 0.000 Nucleated RBC % (auto) 0.0 Anion Gap 14 Estim Creat Clear Calc 108.0 Estimated GFR > 60 POC Glucose 89 Fasting Glucose 93 Calcium 8.9 Magnesium 2.3 Assessment and Plan (1) Sepsis: Status: Acute (2) Acute hypoxemic respiratory failure: Status: Acute (3) Pneumonia: Status: Acute Plan 67M PMH DM2, HTN, HLD, morbid obesity, arthritis of the back, unspecified CHF, and depression who presented to the ED with?worsening SOB, difficulty breathing, and nonproductive cough x2 days. Acute hypoxic respiratory failure due to covid DuoNebs, dexamethasone, remdesivir Benzonatate, guaifenesin for cough wean O2 as tolerated - down to 2L history of pe no longer on coumadin HTN labetolol, nifedipine morbid obesity weight loss DM Hold metformin sliding scale insulin Diabetic diet Mood disorder [place] Full Code DVT Prophylaxis: Lovenox reason for continued hospitalization:weaning o2 Time Spent With Patient Time: Total time managing care of this patient today ____ minutes. Quality Stroke Does the patient have a stroke diagnosis?: No VTE Prior VTE?: Yes VTE Risk Level:: Medical - moderate - high VTE Device Contraindication: Treatment Not Indicated VTE Drug Contraindication: N/A - Med Ordered
[2023-07-06] MEDS: dexAMETHasone sod phosphate 4 MG/ML VIAL 6 MG IVPUSH (10:34)
[2023-07-06] MEDS: polyethylene glycoL 3350 17 GM POWD.PACK PO (10:35)
[2023-07-06] MEDS: NIFEdipine ER 30 MG TAB.ER.24 60 MG PO (10:35)
[2023-07-06] MEDS: oxyBUTYnin chloride ER 5 MG TAB.ER.24 10 MG PO (10:35)
[2023-07-06] MEDS: Celecoxib 200 MG CAPSULE PO (10:35)
[2023-07-06] MEDS: Cholecalciferol (Vitamin D3) 25 MCG TABLET PO (10:36)
[2023-07-06] MEDS: Multivitamin TABLET 1 TAB PO (10:36)
[2023-07-06] MEDS: Escitalopram Oxalate 10 MG TABLET PO (10:36)
[2023-07-06] MEDS: Lurasidone HCl 40 MG TABLET PO (10:36)
[2023-07-06] MEDS: Thiamine HCL 100 MG TABLET PO (10:36)
[2023-07-06] MEDS: metFORMIN HCl 500 MG TABLET PO ×2 (10:36→21:37)
[2023-07-06] MEDS: methocarbamoL 750 MG TABLET PO (10:36)
[2023-07-06] MEDS: Labetalol HCL 200 MG TABLET PO ×2 (10:36→21:37)
[2023-07-06] MEDS: 0.9 % Sodium Chloride Flush 3 ML SYRINGE IVFLUSH ×3 (10:37→23:44)
[2023-07-06 11:23] VITALS: BP 134/77; PULSE 59; O2SAT 95
[2023-07-06 11:44] LABS: Glucose, Whole Blood 131 mg/dL (60-115)
[2023-07-06] MEDS: Enoxaparin Sodium 40 MG/0.4 ML SYRINGE SUBCUT (13:35)
[2023-07-06 15:55] VITALS: BP 152/71; PULSE 68; RESP 17; TEMP 37.1; O2SAT 93
[2023-07-06 16:18] LABS: Glucose, Whole Blood 229 mg/dL (60-115)
[2023-07-06] MEDS: Insulin Lispro 100 UNIT/ML 3 ML VIAL SUBCUT (16:33)
[2023-07-06 20:00] VITALS: BP 153/77; PULSE 60; RESP 18; TEMP 37; O2SAT 95
[2023-07-06] MEDS: Albuterol/Iprat 2.5/0.5MG 3 ML AMPUL.NEB INHALE (20:22)
[2023-07-06 20:23] VITALS: PULSE 63; RESP 18; O2SAT 97
[2023-07-06 20:46] LABS: Glucose, Whole Blood 124 mg/dL (60-115)
[2023-07-06] MEDS: Amitriptyline HCl 25 MG TABLET PO (21:37)
[2023-07-06] MEDS: traZODone HCL 100 MG TABLET 200 MG PO (21:38)
[2023-07-06] MEDS: Docusate Sodium 100 MG CAPSULE PO (22:06)
[2023-07-07] VITALS (9 sets, daily range): BP systolic 138–150; BP diastolic 63–71; PULSE 53–88; RESP 14–20; TEMP 36.2–36.5; O2SAT 90–95
[2023-07-07 06:42] LABS: Hematocrit 39.4 % (42.0-52.0); Hemoglobin 12.9 g/dl (14.0-18.0); Mean Corpuscular HGB Conc 32.7 g/dl (31.0-36.0); Mean Corpuscular Hemoglobin 29.8 pg (27.0-33.0); Mean Platelet Volume 9.6 fL (9.4-12.4); Platelet Count 212 X10*3/uL (160-400); Red Blood Count 4.33 X10*6/uL (4.60-5.80); Red Cell Distribution Width 13.8 % (11.0-16.0); White Blood Count 8.9 X10*3/uL (4.8-10.8)
[2023-07-07 07:00] LABS: Anion Gap 12 (12-20); Blood Urea Nitrogen 24 mg/dL (9-16); Calcium 8.7 mg/dL (8.4-10.2); Carbon Dioxide 31 mmol/L (22-29); Chloride 100 mmol/L (96-108); Creatinine Clr Calc Pharmacy 105.5; Estimated Glomerular Filt Rate > 60; Glucose Fasting 119 mg/dL (60-99); Potassium 3.8 mmol/L (3.3-5.1); Sodium 139 mmol/L (135-145)
[2023-07-07 07:35] LABS: Glucose, Whole Blood 105 mg/dL (60-115)
[2023-07-07] MEDS: Albuterol/Iprat 2.5/0.5MG 3 ML AMPUL.NEB INHALE ×4 (07:58→19:49)
[2023-07-07] MEDS: methocarbamoL 750 MG TABLET PO (09:12)
[2023-07-07] MEDS: dexAMETHasone sod phosphate 4 MG/ML VIAL 6 MG IVPUSH (09:12)
[2023-07-07] MEDS: metFORMIN HCl 500 MG TABLET PO ×2 (09:12→20:26)
[2023-07-07] MEDS: Thiamine HCL 100 MG TABLET PO (09:13)
[2023-07-07] MEDS: NIFEdipine ER 30 MG TAB.ER.24 60 MG PO (09:13)
[2023-07-07] MEDS: Cholecalciferol (Vitamin D3) 25 MCG TABLET PO (09:13)
[2023-07-07] MEDS: Celecoxib 200 MG CAPSULE PO (09:13)
[2023-07-07] MEDS: oxyBUTYnin chloride ER 5 MG TAB.ER.24 10 MG PO (09:13)
[2023-07-07] MEDS: Lurasidone HCl 40 MG TABLET PO (09:13)
[2023-07-07] MEDS: Escitalopram Oxalate 10 MG TABLET PO (09:13)
[2023-07-07] MEDS: Labetalol HCL 200 MG TABLET PO ×2 (09:13→20:26)
[2023-07-07] MEDS: 0.9 % Sodium Chloride Flush 3 ML SYRINGE IVFLUSH ×3 (09:14→20:27)
[2023-07-07] MEDS: Multivitamin TABLET 1 TAB PO (09:14)
--- NOTE | 2023-07-07 10:53 | P.PNIM_ITS ---
Subjective Subjective Date of Service: 07/07/23 Interval History: imprving Physical Exam 2 Vital Signs: Vital Signs: Last Vital Signs Temp 97.3 F 07/07/23 07:20 Pulse 53 07/07/23 08:00 Resp 16 07/07/23 08:00 BP 145/71 H 07/07/23 07:20 Pulse Ox 94 07/07/23 07:20 O2 Del Method Nasal Cannula 07/07/23 07:20 O2 Flow Rate 2 07/07/23 07:20 BMI result Body Mass Index 40.5 General: AO X 3, no acute distress Resp: CTA bilateral, no accessory muscles used CVS: S1,S2,RRR GI: soft, non tender, non distended Neuro: motor grossly intact, alert Psych: appropriate affect, appropriate insight Objective Data Active Medications Acetaminophen (Acetaminophen 325 Mg Tablet) 650 mg PO Q6H PRN PRN Reason: Pain, Mild (Pain Scale 1-3) Last Admin: 07/05/23 08:45 Dose: 650 mg Documented By: HARRISON Albuterol/Ipratropium (Albuterol/Iprat 2.5/0.5mg 3 Ml Ampul.Neb) 3 ml INHALE RQ4H WHILE AWAKE [facility] Last Admin: 07/07/23 07:58 Dose: 3 ml Documented By: RENEE Amitriptyline HCl (Amitriptyline Hcl 25 Mg Tablet) 25 mg PO BEDTIME [facility] Last Admin: 07/06/23 21:37 Dose: 25 mg Documented By: JAMES Benzonatate (Benzonatate 100 Mg Capsule) 100 mg PO TID PRN PRN Reason: Cough Last Admin: 07/05/23 22:23 Dose: 100 mg Documented By: FERNANDA Comments: pt did not ask for guaifenesin, wrong patient for that response. Celecoxib (Celecoxib 200 Mg Capsule) 200 mg PO DAILY [facility] Last Admin: 07/07/23 09:13 Dose: 200 mg Documented By: MARICRUZ Dexamethasone Sodium Phosphate (Dexamethasone Sod Phosphate 4 Mg/Ml Vial) 6 mg IVPUSH DAILY [facility] Last Admin: 07/07/23 09:12 Dose: 6 mg Documented By: MARICRUZ Dextrose (Dextrose 50 % 25 Gm/50 Ml Syringe) 25 gm IVPUSH Q15M PRN; Protocol PRN Reason: per Hypoglycemia Standing Ord. Docusate Sodium (Docusate Sodium 100 Mg Capsule) 100 mg PO DAILY PRN PRN Reason: Constipation Last Admin: 07/06/23 22:06 Dose: 100 mg Documented By: JAMES Enoxaparin Sodium (Enoxaparin Sodium 40 Mg/0.4 Ml Syringe) 40 mg SUBCUT Q24H [facility] Last Admin: 07/06/23 13:35 Dose: 40 mg Documented By: JOSIE Escitalopram Oxalate (Escitalopram Oxalate 10 Mg Tablet) 10 mg PO DAILY [facility] Last Admin: 07/07/23 09:13 Dose: 10 mg Documented By: MARICRUZ Glucose (Glucose Gel 15 Gm Gel..Gram.) 15 gm PO Q15M PRN; Protocol PRN Reason: per Hypoglycemia Standing Ord. Guaifenesin/Dextromethorphan (Guaifenesin Dm 200/20/10 Ml 10 Ml Syrup) 10 ml PO Q4H PRN PRN Reason: Cough Last Admin: 07/05/23 08:46 Dose: 10 ml Documented By: HARRISON Insulin Human Lispro (Insulin Lispro 100 Unit/Ml 3 Ml Vial) 0 unit SUBCUT QIDACHS [facility]; Protocol Last Admin: 07/07/23 07:42 Dose: Not Given Documented By: MARICRUZ Non-Admin Reason: No Insulin Coverage Comments: [id number]=[id number] Labetalol HCl (Labetalol Hcl 200 Mg Tablet) 200 mg PO BID [facility]; Protocol Last Admin: 07/07/23 09:13 Dose: 200 mg Documented By: MARICRUZ Lurasidone HCl (Lurasidone Hcl 40 Mg Tablet) 40 mg PO DAILY [facility] Last Admin: 07/07/23 09:13 Dose: 40 mg Documented By: MARICRUZ Metformin HCl (Metformin Hcl 500 Mg Tablet) 500 mg PO BID [facility] Last Admin: 07/07/23 09:12 Dose: 500 mg Documented By: MARICRUZ Methocarbamol (Methocarbamol 750 Mg Tablet) 750 mg PO DAILY [facility] Last Admin: 07/07/23 09:12 Dose: 750 mg Documented By: MARICRUZ Multivitamins/Vitamin C (Multivitamin Tablet) 1 tab PO DAILY [facility] Last Admin: 07/07/23 09:14 Dose: 1 tab Documented By: MARICRUZ Nifedipine (Nifedipine Er 30 Mg Tab.Er.24) 60 mg PO DAILY [facility]; Protocol Last Admin: 07/07/23 09:13 Dose: 60 mg Documented By: MARICRUZ Oxybutynin Chloride (Oxybutynin Chloride Er 5 Mg Tab.Er.24) 10 mg PO DAILY [facility] Last Admin: 07/07/23 09:13 Dose: 10 mg Documented By: MARICRUZ Sodium Chloride (0.9 % Sodium Chloride Flush 3 Ml Syringe) 3 ml IVFLUSH QSHIFT [facility] Last Admin: 07/07/23 09:14 Dose: 3 ml Documented By: MARICRUZ Thiamine HCl (Thiamine Hcl 100 Mg Tablet) 100 mg PO DAILY [facility] Last Admin: 07/07/23 09:13 Dose: 100 mg Documented By: MARICRUZ Trazodone HCl (Trazodone Hcl 100 Mg Tablet) 200 mg PO BEDTIME [facility] Last Admin: 07/06/23 21:38 Dose: 200 mg Documented By: JAMES Vitamin D (Cholecalciferol (Vitamin D3) 25 Mcg Tablet) 25 mcg PO DAILY [facility] Last Admin: 07/07/23 09:13 Dose: 25 mcg Documented By: MARICRUZ Labs 07/07/23 06:23 07/07/23 06:23 Labs: Laboratory Results - last 24 hr 07/06/23 07/06/23 07/06/23 11:34 15:54 20:38 MCV MCH MCHC RDW Plt Count MPV Absolute Nucleated RBC Nucleated RBC % (auto) Anion Gap Estim Creat Clear Calc Estimated GFR POC Glucose 131 H 229 H 124 H Fasting Glucose Calcium 07/07/23 07/07/23 06:23 07:23 MCV 91.0 MCH 29.8 MCHC 32.7 RDW 13.8 Plt Count 212 MPV 9.6 Absolute Nucleated RBC 0.000 Nucleated RBC % (auto) 0.0 Anion Gap 12 Estim Creat Clear Calc 105.5 Estimated GFR > 60 POC Glucose 105 Fasting Glucose 119 H Calcium 8.7 Microbiology Microbiology Results: Microbiology 07/01/23 14:27 Blood Culture - Final Blood - Venous No growth after 5 days. 07/01/23 14:20 Blood Culture - Final Blood - Venous No growth after 5 days. Assessment and Plan (1) Sepsis: Status: Acute (2) Acute hypoxemic respiratory failure: Status: Acute (3) Pneumonia: Status: Acute Plan 67M PMH DM2, HTN, HLD, morbid obesity, arthritis of the back, unspecified CHF, and depression who presented to the ED with?worsening SOB, difficulty breathing, and nonproductive cough x2 days. Acute hypoxic respiratory failure due to covid DuoNebs, dexamethasone, completed remdesivir Benzonatate, guaifenesin for cough wean O2 as tolerated - down to 2L history of pe no longer on coumadin HTN labetolol, nifedipine morbid obesity weight loss DM Hold metformin sliding scale insulin Diabetic diet Mood disorder latuda Full Code DVT Prophylaxis: Lovenox reason for continued hospitalization:weaning o2 Time Spent With Patient Time: Total time managing care of this patient today ____ minutes. Quality Stroke Does the patient have a stroke diagnosis?: No VTE Prior VTE?: Yes VTE Risk Level:: Medical - moderate - high VTE Device Contraindication: Treatment Not Indicated VTE Drug Contraindication: N/A - Med Ordered
[2023-07-07 11:17] LABS: Glucose, Whole Blood 128 mg/dL (60-115)
[2023-07-07] MEDS: Enoxaparin Sodium 40 MG/0.4 ML SYRINGE SUBCUT (12:38)
[2023-07-07 16:04] LABS: Glucose, Whole Blood 191 mg/dL (60-115)
[2023-07-07] MEDS: Insulin Lispro 100 UNIT/ML 3 ML VIAL SUBCUT (17:41)
[2023-07-07 20:17] LABS: Glucose, Whole Blood 132 mg/dL (60-115)
[2023-07-07] MEDS: traZODone HCL 100 MG TABLET 200 MG PO (20:26)
[2023-07-07] MEDS: Amitriptyline HCl 25 MG TABLET PO (20:26)
[2023-07-08 03:14] VITALS: BP 169/76; PULSE 58; RESP 20; TEMP 36.1; O2SAT 94
[2023-07-08 07:43] LABS: Glucose, Whole Blood 87 mg/dL (60-115)
[2023-07-08] MEDS: Albuterol/Iprat 2.5/0.5MG 3 ML AMPUL.NEB INHALE ×2 (07:58→11:37)
[2023-07-08 08:00] VITALS: BP 132/71; PULSE 58; PULSE 60; RESP 18; RESP 22; TEMP 36.2; O2SAT 94; O2SAT 97
[2023-07-08] MEDS: oxyBUTYnin chloride ER 5 MG TAB.ER.24 10 MG PO (08:12)
[2023-07-08] MEDS: Escitalopram Oxalate 10 MG TABLET PO (08:13)
[2023-07-08] MEDS: Multivitamin TABLET 1 TAB PO (08:13)
[2023-07-08] MEDS: Thiamine HCL 100 MG TABLET PO (08:13)
[2023-07-08] MEDS: Celecoxib 200 MG CAPSULE PO (08:13)
[2023-07-08] MEDS: metFORMIN HCl 500 MG TABLET PO ×2 (08:13→21:34)
[2023-07-08] MEDS: methocarbamoL 750 MG TABLET PO (08:13)
[2023-07-08] MEDS: 0.9 % Sodium Chloride Flush 3 ML SYRINGE IVFLUSH ×3 (08:14→21:35)
[2023-07-08] MEDS: Labetalol HCL 200 MG TABLET PO ×2 (08:14→21:33)
[2023-07-08] MEDS: dexAMETHasone sod phosphate 4 MG/ML VIAL 6 MG IVPUSH (08:14)
[2023-07-08] MEDS: Cholecalciferol (Vitamin D3) 25 MCG TABLET PO (08:14)
[2023-07-08] MEDS: NIFEdipine ER 30 MG TAB.ER.24 60 MG PO (08:14)
[2023-07-08] MEDS: Lurasidone HCl 40 MG TABLET PO (08:14)
--- NOTE | 2023-07-08 10:41 | P.PNIM_ITS ---
Subjective Subjective Date of Service: 07/08/23 Interval History: stable Physical Exam 2 Vital Signs: Vital Signs: Last Vital Signs Temp 97.1 F 07/08/23 08:00 Pulse 60 07/08/23 08:00 Resp 22 H 07/08/23 08:00 BP 132/71 07/08/23 08:00 Pulse Ox 97 07/08/23 08:00 O2 Del Method Nasal Cannula 07/08/23 08:00 O2 Flow Rate 2 07/08/23 08:00 BMI result Body Mass Index 40.5 General: AO X 3, no acute distress Resp: CTA bilateral, no accessory muscles used CVS: S1,S2,RRR GI: soft, non tender, non distended Neuro: motor grossly intact, alert Psych: appropriate affect, appropriate insight Objective Data Active Medications Acetaminophen (Acetaminophen 325 Mg Tablet) 650 mg PO Q6H PRN PRN Reason: Pain, Mild (Pain Scale 1-3) Last Admin: 07/05/23 08:45 Dose: 650 mg Documented By: HARRISON Albuterol/Ipratropium (Albuterol/Iprat 2.5/0.5mg 3 Ml Ampul.Neb) 3 ml INHALE RQ4H WHILE AWAKE [facility] Last Admin: 07/08/23 07:58 Dose: 3 ml Documented By: DHEERAJ Amitriptyline HCl (Amitriptyline Hcl 25 Mg Tablet) 25 mg PO BEDTIME [facility] Last Admin: 07/07/23 20:26 Dose: 25 mg Documented By: NAUMOC Benzonatate (Benzonatate 100 Mg Capsule) 100 mg PO TID PRN PRN Reason: Cough Last Admin: 07/05/23 22:23 Dose: 100 mg Documented By: FERNANDA Comments: pt did not ask for guaifenesin, wrong patient for that response. Celecoxib (Celecoxib 200 Mg Capsule) 200 mg PO DAILY [facility] Last Admin: 07/08/23 08:13 Dose: 200 mg Documented By: MARICRUZ Dexamethasone Sodium Phosphate (Dexamethasone Sod Phosphate 4 Mg/Ml Vial) 6 mg IVPUSH DAILY [facility] Last Admin: 07/08/23 08:14 Dose: 6 mg Documented By: MARICRUZ Dextrose (Dextrose 50 % 25 Gm/50 Ml Syringe) 25 gm IVPUSH Q15M PRN; Protocol PRN Reason: per Hypoglycemia Standing Ord. Docusate Sodium (Docusate Sodium 100 Mg Capsule) 100 mg PO DAILY PRN PRN Reason: Constipation Last Admin: 07/06/23 22:06 Dose: 100 mg Documented By: JAMES Enoxaparin Sodium (Enoxaparin Sodium 40 Mg/0.4 Ml Syringe) 40 mg SUBCUT Q24H [facility] Last Admin: 07/07/23 12:38 Dose: 40 mg Documented By: MARICRUZ Escitalopram Oxalate (Escitalopram Oxalate 10 Mg Tablet) 10 mg PO DAILY [facility] Last Admin: 07/08/23 08:13 Dose: 10 mg Documented By: MARICRUZ Glucose (Glucose Gel 15 Gm Gel..Gram.) 15 gm PO Q15M PRN; Protocol PRN Reason: per Hypoglycemia Standing Ord. Guaifenesin/Dextromethorphan (Guaifenesin Dm 200/20/10 Ml 10 Ml Syrup) 10 ml PO Q4H PRN PRN Reason: Cough Last Admin: 07/05/23 08:46 Dose: 10 ml Documented By: HARRISON Insulin Human Lispro (Insulin Lispro 100 Unit/Ml 3 Ml Vial) 0 unit SUBCUT QIDACHS [facility]; Protocol Last Admin: 07/08/23 08:22 Dose: Not Given Documented By: MARICRUZ Non-Admin Reason: No Insulin Coverage Labetalol HCl (Labetalol Hcl 200 Mg Tablet) 200 mg PO BID [facility]; Protocol Last Admin: 07/08/23 08:14 Dose: 200 mg Documented By: MARICRUZ Lurasidone HCl (Lurasidone Hcl 40 Mg Tablet) 40 mg PO DAILY [facility] Last Admin: 07/08/23 08:14 Dose: 40 mg Documented By: MARICRUZ Metformin HCl (Metformin Hcl 500 Mg Tablet) 500 mg PO BID [facility] Last Admin: 07/08/23 08:13 Dose: 500 mg Documented By: MARICRUZ Methocarbamol (Methocarbamol 750 Mg Tablet) 750 mg PO DAILY [facility] Last Admin: 07/08/23 08:13 Dose: 750 mg Documented By: MARICRUZ Multivitamins/Vitamin C (Multivitamin Tablet) 1 tab PO DAILY [facility] Last Admin: 07/08/23 08:13 Dose: 1 tab Documented By: MARICRUZ Nifedipine (Nifedipine Er 30 Mg Tab.Er.24) 60 mg PO DAILY [facility]; Protocol Last Admin: 07/08/23 08:14 Dose: 60 mg Documented By: MARICRUZ Oxybutynin Chloride (Oxybutynin Chloride Er 5 Mg Tab.Er.24) 10 mg PO DAILY [facility] Last Admin: 07/08/23 08:12 Dose: 10 mg Documented By: MARICRUZ Sodium Chloride (0.9 % Sodium Chloride Flush 3 Ml Syringe) 3 ml IVFLUSH QSHIFT [facility] Last Admin: 07/08/23 08:14 Dose: 3 ml Documented By: MARICRUZ Thiamine HCl (Thiamine Hcl 100 Mg Tablet) 100 mg PO DAILY [facility] Last Admin: 07/08/23 08:13 Dose: 100 mg Documented By: MARICRUZ Trazodone HCl (Trazodone Hcl 100 Mg Tablet) 200 mg PO BEDTIME [facility] Last Admin: 07/07/23 20:26 Dose: 200 mg Documented By: ALLEGRA Vitamin D (Cholecalciferol (Vitamin D3) 25 Mcg Tablet) 25 mcg PO DAILY [facility] Last Admin: 07/08/23 08:14 Dose: 25 mcg Documented By: MARICRUZ Labs 07/07/23 06:23 07/07/23 06:23 Labs: Laboratory Results - last 24 hr 07/07/23 07/07/23 07/07/23 11:07 16:00 20:10 POC Glucose 128 H 191 H 132 H 07/08/23 07:30 POC Glucose 87 Assessment and Plan (1) Sepsis: Status: Acute (2) Acute hypoxemic respiratory failure: Status: Acute (3) Pneumonia: Status: Acute Plan 67M PMH DM2, HTN, HLD, morbid obesity, arthritis of the back, unspecified CHF, and depression who presented to the ED with?worsening SOB, difficulty breathing, and nonproductive cough x2 days. Acute hypoxic respiratory failure due to covid DuoNebs, dexamethasone day 7, completed remdesivir Benzonatate, guaifenesin for cough wean O2 as tolerated - down to 2L history of pe no longer on coumadin HTN labetolol, nifedipine morbid obesity weight loss DM Hold metformin sliding scale insulin Diabetic diet Mood disorder latuda Full Code DVT Prophylaxis: Lovenox reason for continued hospitalization:weaning o2, safe dispo (rehab will take 9/18/23) Time Spent With Patient Time: Total time managing care of this patient today ____ minutes. Quality Stroke Does the patient have a stroke diagnosis?: No VTE Prior VTE?: Yes VTE Risk Level:: Medical - moderate - high VTE Device Contraindication: Treatment Not Indicated VTE Drug Contraindication: N/A - Med Ordered
[2023-07-08 11:35] LABS: Glucose, Whole Blood 134 mg/dL (60-115)
[2023-07-08 11:37] VITALS: PULSE 68; RESP 18; O2SAT 97
[2023-07-08 11:47] VITALS: BP 148/74; PULSE 70; RESP 20; TEMP 36.7; O2SAT 96
[2023-07-08] MEDS: Enoxaparin Sodium 40 MG/0.4 ML SYRINGE SUBCUT (13:25)
[2023-07-08 15:10] VITALS: BP 139/68; PULSE 62; RESP 20; TEMP 36.4; O2SAT 95
--- NOTE | 2023-07-08 15:31 | MHC.CM.PN ---
EMR reviewed and per MD rounds, pt is not medically cleared for D/C today due to pt with +covid-19 infection, no facilities having an available bed to offer him. Pt will need to test negative for covid, or wait until he is cleared from precautions on day 11 (07/11). Covid re-test pending. CM will continue to follow.
[2023-07-08 16:09] LABS: Glucose, Whole Blood 172 mg/dL (60-115)
[2023-07-08] MEDS: Insulin Lispro 100 UNIT/ML 3 ML VIAL SUBCUT (17:05)
[2023-07-08 19:01] LABS: COVID-19 Test Positive (Negative); IDNOW Serial# 08D9AD1C
[2023-07-08 19:14] VITALS: BP 133/73; PULSE 72; RESP 20; TEMP 36.8; O2SAT 90
[2023-07-08 21:26] LABS: Glucose, Whole Blood 113 mg/dL (60-115)
[2023-07-08] MEDS: traZODone HCL 100 MG TABLET 200 MG PO (21:33)
[2023-07-08] MEDS: Docusate Sodium 100 MG CAPSULE PO (21:34)
[2023-07-08] MEDS: Amitriptyline HCl 25 MG TABLET PO (21:34)
[2023-07-09 03:10] VITALS: BP 150/66; PULSE 61; RESP 17; TEMP 36.2; O2SAT 90
[2023-07-09 07:29] VITALS: BP 139/83; PULSE 55; RESP 17; TEMP 36.4; O2SAT 92
[2023-07-09 08:00] LABS: Glucose, Whole Blood 91 mg/dL (60-115)
[2023-07-09] MEDS: metFORMIN HCl 500 MG TABLET PO ×2 (09:30→22:06)
[2023-07-09] MEDS: Celecoxib 200 MG CAPSULE PO (09:30)
[2023-07-09] MEDS: methocarbamoL 750 MG TABLET PO (09:31)
[2023-07-09] MEDS: oxyBUTYnin chloride ER 5 MG TAB.ER.24 10 MG PO (09:31)
[2023-07-09] MEDS: Labetalol HCL 200 MG TABLET PO ×2 (09:31→22:06)
[2023-07-09] MEDS: Escitalopram Oxalate 10 MG TABLET PO (09:31)
[2023-07-09] MEDS: Thiamine HCL 100 MG TABLET PO (09:31)
[2023-07-09] MEDS: dexAMETHasone sod phosphate 4 MG/ML VIAL 6 MG IVPUSH (09:31)
[2023-07-09] MEDS: Cholecalciferol (Vitamin D3) 25 MCG TABLET PO (09:31)
[2023-07-09] MEDS: Multivitamin TABLET 1 TAB PO (09:31)
[2023-07-09] MEDS: Lurasidone HCl 40 MG TABLET PO (09:31)
[2023-07-09] MEDS: NIFEdipine ER 30 MG TAB.ER.24 60 MG PO (09:31)
[2023-07-09] MEDS: 0.9 % Sodium Chloride Flush 3 ML SYRINGE IVFLUSH ×2 (09:32→16:34)
[2023-07-09 11:30] LABS: Glucose, Whole Blood 134 mg/dL (60-115)
--- NOTE | 2023-07-09 11:51 | HO.PM.IMPN ---
Subjective Subjective Date of Service: 07/09/23 Interval History: Seen and evaluated Feels better, coughing less No fever or chills eating well Review of Systems Review of Systems: Yes all other systems are reviewed and are negative Physical Exam Vital Signs: Vital Signs: Last Vital Signs Temp 97.6 F 07/09/23 07:29 Pulse 55 07/09/23 07:29 Resp 17 07/09/23 07:29 BP 139/83 07/09/23 07:29 Pulse Ox 92 07/09/23 07:29 O2 Del Method Room Air 07/09/23 07:29 O2 Flow Rate 2 07/08/23 15:10 BMI result Body Mass Index 40.5 Const: Other: Constitutional : Awake, interactive, not in distress Neck : Normal inspection, Supple Cardiovascular : RRR, no JVP, no lower extremity edema Respiratory : fair bilateral air entry, basal fine, no wheezes , on RA Gastrointestinal: soft, lax, Normal bowel sounds, Non tender Skin : Warm, Dry Neurological : Alert & oriented x3, No focal deficit Objective Data Active Medications Acetaminophen (Acetaminophen 325 Mg Tablet) 650 mg PO Q6H PRN PRN Reason: Pain, Mild (Pain Scale 1-3) Last Admin: 07/05/23 08:45 Dose: 650 mg Documented By: HARRISON Amitriptyline HCl (Amitriptyline Hcl 25 Mg Tablet) 25 mg PO BEDTIME [facility] Last Admin: 07/08/23 21:34 Dose: 25 mg Documented By: FERNANDA Benzonatate (Benzonatate 100 Mg Capsule) 100 mg PO TID PRN PRN Reason: Cough Last Admin: 07/05/23 22:23 Dose: 100 mg Documented By: FERNANDA Comments: pt did not ask for guaifenesin, wrong patient for that response. Celecoxib (Celecoxib 200 Mg Capsule) 200 mg PO DAILY [facility] Last Admin: 07/09/23 09:30 Dose: 200 mg Documented By: MARVA Dexamethasone Sodium Phosphate (Dexamethasone Sod Phosphate 4 Mg/Ml Vial) 6 mg IVPUSH DAILY [facility] Last Admin: 07/09/23 09:31 Dose: 6 mg Documented By: MARVA Dextrose (Dextrose 50 % 25 Gm/50 Ml Syringe) 25 gm IVPUSH Q15M PRN; Protocol PRN Reason: per Hypoglycemia Standing Ord. Docusate Sodium (Docusate Sodium 100 Mg Capsule) 100 mg PO DAILY PRN PRN Reason: Constipation Last Admin: 07/08/23 21:34 Dose: 100 mg Documented By: FERNANDA Enoxaparin Sodium (Enoxaparin Sodium 40 Mg/0.4 Ml Syringe) 40 mg SUBCUT Q24H [facility] Last Admin: 07/08/23 13:25 Dose: 40 mg Documented By: MARICRUZ Escitalopram Oxalate (Escitalopram Oxalate 10 Mg Tablet) 10 mg PO DAILY [facility] Last Admin: 07/09/23 09:31 Dose: 10 mg Documented By: MARVA Glucose (Glucose Gel 15 Gm Gel..Gram.) 15 gm PO Q15M PRN; Protocol PRN Reason: per Hypoglycemia Standing Ord. Guaifenesin/Dextromethorphan (Guaifenesin Dm 200/20/10 Ml 10 Ml Syrup) 10 ml PO Q4H PRN PRN Reason: Cough Last Admin: 07/05/23 08:46 Dose: 10 ml Documented By: HARRISON Insulin Human Lispro (Insulin Lispro 100 Unit/Ml 3 Ml Vial) 0 unit SUBCUT QIDACHS [facility]; Protocol Last Admin: 07/09/23 11:37 Dose: Not Given Documented By: MARVA Non-Admin Reason: No Insulin Coverage Comments: per sliding scale Labetalol HCl (Labetalol Hcl 200 Mg Tablet) 200 mg PO BID [facility]; Protocol Last Admin: 07/09/23 09:31 Dose: 200 mg Documented By: MARVA Lurasidone HCl (Lurasidone Hcl 40 Mg Tablet) 40 mg PO DAILY [facility] Last Admin: 07/09/23 09:31 Dose: 40 mg Documented By: MARVA Metformin HCl (Metformin Hcl 500 Mg Tablet) 500 mg PO BID [facility] Last Admin: 07/09/23 09:30 Dose: 500 mg Documented By: MARVA Methocarbamol (Methocarbamol 750 Mg Tablet) 750 mg PO DAILY [facility] Last Admin: 07/09/23 09:31 Dose: 750 mg Documented By: MARVA Multivitamins/Vitamin C (Multivitamin Tablet) 1 tab PO DAILY [facility] Last Admin: 07/09/23 09:31 Dose: 1 tab Documented By: MAVRA Nifedipine (Nifedipine Er 30 Mg Tab.Er.24) 60 mg PO DAILY [facility]; Protocol Last Admin: 07/09/23 09:31 Dose: 60 mg Documented By: MARVA Oxybutynin Chloride (Oxybutynin Chloride Er 5 Mg Tab.Er.24) 10 mg PO DAILY [facility] Last Admin: 07/09/23 09:31 Dose: 10 mg Documented By: MARVA Sodium Chloride (0.9 % Sodium Chloride Flush 3 Ml Syringe) 3 ml IVFLUSH QSHIFT [facility] Last Admin: 07/09/23 09:32 Dose: 3 ml Documented By: MARVA Thiamine HCl (Thiamine Hcl 100 Mg Tablet) 100 mg PO DAILY [facility] Last Admin: 07/09/23 09:31 Dose: 100 mg Documented By: MARVA Trazodone HCl (Trazodone Hcl 100 Mg Tablet) 200 mg PO BEDTIME [facility] Last Admin: 07/08/23 21:33 Dose: 200 mg Documented By: FERNANDA Vitamin D (Cholecalciferol (Vitamin D3) 25 Mcg Tablet) 25 mcg PO DAILY [facility] Last Admin: 07/09/23 09:31 Dose: 25 mcg Documented By: MARVA Labs 07/07/23 06:23 07/07/23 06:23 Labs: Laboratory Results - last 24 hr 07/08/23 07/08/23 07/08/23 16:04 18:30 21:22 POC Glucose 172 H 113 COVID-19 (ARNIE) Positive A COVID-19 Clin Com See Note 07/09/23 07/09/23 07:52 11:26 POC Glucose 91 134 H COVID-19 (ARNIE) COVID-19 Clin Com Assessment and Plan (1) COVID: Status: Acute Plan 67M PMH DM2, HTN, HLD, morbid obesity, arthritis of the back, unspecified CHF, and depression who presented to the ED with?worsening SOB, difficulty breathing, and nonproductive cough x2 days. Acute hypoxic respiratory failure due to covid DuoNebs, dexamethasone day 8, completed remdesivir Benzonatate, guaifenesin for cough wean O2 as tolerated - down to 2L history of pe no longer on coumadin HTN labetolol, nifedipine morbid obesity weight loss DM Hold metformin sliding scale insulin Diabetic diet Mood disorder latuda Full Code DVT Prophylaxis: Lovenox reason for continued hospitalization: pending [facility] to rehab on 07/11/23 Time Spent With Patient Time: Total time managing care of this patient today ____ minutes. Quality Stroke Does the patient have a stroke diagnosis?: No VTE Prior VTE?: Yes VTE Risk Level:: Medical - moderate - high VTE Device Contraindication: Treatment Not Indicated VTE Drug Contraindication: N/A - Med Ordered
[2023-07-09] MEDS: Enoxaparin Sodium 40 MG/0.4 ML SYRINGE SUBCUT (12:21)
[2023-07-09 15:42] VITALS: BP 155/72; PULSE 62; RESP 20; TEMP 37.1; O2SAT 91
[2023-07-09 16:51] LABS: Glucose, Whole Blood 186 mg/dL (60-115)
[2023-07-09] MEDS: Insulin Lispro 100 UNIT/ML 3 ML VIAL SUBCUT (16:56)
[2023-07-09 19:55] VITALS: BP 167/76; PULSE 66; RESP 19; TEMP 37; O2SAT 92
[2023-07-09 20:49] LABS: Glucose, Whole Blood 147 mg/dL (60-115)
[2023-07-09] MEDS: Amitriptyline HCl 25 MG TABLET PO (22:06)
[2023-07-09] MEDS: traZODone HCL 100 MG TABLET 200 MG PO (22:06)
[2023-07-09] MEDS: Docusate Sodium 100 MG CAPSULE PO (22:19)
[2023-07-10] VITALS: BP 137/70; PULSE 56; RESP 16; TEMP 36.1; O2SAT 90
[2023-07-10 04:00] VITALS: BP 152/75; PULSE 52; RESP 15; TEMP 36.1; O2SAT 92
[2023-07-10 07:37] VITALS: BP 152/76; PULSE 51; RESP 16; TEMP 36.4; O2SAT 92
[2023-07-10 07:49] LABS: Glucose, Whole Blood 112 mg/dL (60-115)
[2023-07-10] MEDS: metFORMIN HCl 500 MG TABLET PO ×2 (08:18→21:06)
[2023-07-10] MEDS: Cholecalciferol (Vitamin D3) 25 MCG TABLET PO (08:18)
[2023-07-10] MEDS: oxyBUTYnin chloride ER 5 MG TAB.ER.24 10 MG PO (08:18)
[2023-07-10] MEDS: Multivitamin TABLET 1 TAB PO (08:18)
[2023-07-10] MEDS: Escitalopram Oxalate 10 MG TABLET PO (08:18)
[2023-07-10] MEDS: NIFEdipine ER 30 MG TAB.ER.24 60 MG PO (08:18)
[2023-07-10] MEDS: Thiamine HCL 100 MG TABLET PO (08:18)
[2023-07-10] MEDS: Lurasidone HCl 40 MG TABLET PO (08:18)
[2023-07-10] MEDS: 0.9 % Sodium Chloride Flush 3 ML SYRINGE IVFLUSH ×3 (08:19→21:07)
[2023-07-10] MEDS: Labetalol HCL 200 MG TABLET PO ×2 (08:19→21:07)
[2023-07-10] MEDS: dexAMETHasone sod phosphate 4 MG/ML VIAL 6 MG IVPUSH (08:19)
[2023-07-10] MEDS: Celecoxib 200 MG CAPSULE PO (08:19)
[2023-07-10] MEDS: methocarbamoL 750 MG TABLET PO (08:19)
[2023-07-10 11:43] LABS: Glucose, Whole Blood 204 mg/dL (60-115)
--- NOTE | 2023-07-10 11:44 | P.PNIM_ITS ---
Subjective Subjective Date of Service: 07/10/23 Interval History: Seen and evaluated Feels better, on RA No fever or chills eating well Review of Systems Review of Systems: Yes all other systems are reviewed and are negative Physical Exam 2 Vital Signs: Vital Signs: Last Vital Signs Temp 97.5 F 07/10/23 07:37 Pulse 51 07/10/23 07:37 Resp 16 07/10/23 07:37 BP 152/76 H 07/10/23 07:37 Pulse Ox 92 07/10/23 07:37 O2 Del Method Room Air 07/10/23 07:37 O2 Flow Rate 2 07/08/23 15:10 BMI result Body Mass Index 40.5 Const: Other: Constitutional : Awake, interactive, not in distress Neck : Normal inspection, Supple Cardiovascular : RRR, no JVP, no lower extremity edema Respiratory : fair bilateral air entry, basal fine, no wheezes , on RA Gastrointestinal: soft, lax, Normal bowel sounds, Non tender Skin : Warm, Dry Neurological : Alert & oriented x3, No focal deficit Objective Data Active Medications Acetaminophen (Acetaminophen 325 Mg Tablet) 650 mg PO Q6H PRN PRN Reason: Pain, Mild (Pain Scale 1-3) Last Admin: 07/05/23 08:45 Dose: 650 mg Documented By: HARRISON Amitriptyline HCl (Amitriptyline Hcl 25 Mg Tablet) 25 mg PO BEDTIME [facility] Last Admin: 07/09/23 22:06 Dose: 25 mg Documented By: FERNANDA Benzonatate (Benzonatate 100 Mg Capsule) 100 mg PO TID PRN PRN Reason: Cough Last Admin: 07/05/23 22:23 Dose: 100 mg Documented By: FERNANDA Comments: pt did not ask for guaifenesin, wrong patient for that response. Celecoxib (Celecoxib 200 Mg Capsule) 200 mg PO DAILY [facility] Last Admin: 07/10/23 08:19 Dose: 200 mg Documented By: MARVA Dexamethasone Sodium Phosphate (Dexamethasone Sod Phosphate 4 Mg/Ml Vial) 6 mg IVPUSH DAILY [facility] Last Admin: 07/10/23 08:19 Dose: 6 mg Documented By: MARVA Dextrose (Dextrose 50 % 25 Gm/50 Ml Syringe) 25 gm IVPUSH Q15M PRN; Protocol PRN Reason: per Hypoglycemia Standing Ord. Docusate Sodium (Docusate Sodium 100 Mg Capsule) 100 mg PO DAILY PRN PRN Reason: Constipation Last Admin: 07/09/23 22:19 Dose: 100 mg Documented By: FERNANDA Enoxaparin Sodium (Enoxaparin Sodium 40 Mg/0.4 Ml Syringe) 40 mg SUBCUT Q24H [facility] Last Admin: 07/09/23 12:21 Dose: 40 mg Documented By: MARVA Escitalopram Oxalate (Escitalopram Oxalate 10 Mg Tablet) 10 mg PO DAILY [facility] Last Admin: 07/10/23 08:18 Dose: 10 mg Documented By: MARVA Glucose (Glucose Gel 15 Gm Gel..Gram.) 15 gm PO Q15M PRN; Protocol PRN Reason: per Hypoglycemia Standing Ord. Guaifenesin/Dextromethorphan (Guaifenesin Dm 200/20/10 Ml 10 Ml Syrup) 10 ml PO Q4H PRN PRN Reason: Cough Last Admin: 07/05/23 08:46 Dose: 10 ml Documented By: HARRISON Insulin Human Lispro (Insulin Lispro 100 Unit/Ml 3 Ml Vial) 0 unit SUBCUT QIDACHS [facility]; Protocol Last Admin: 07/10/23 08:00 Dose: Not Given Documented By: MARVA Non-Admin Reason: No Insulin Coverage Labetalol HCl (Labetalol Hcl 200 Mg Tablet) 200 mg PO BID [facility]; Protocol Last Admin: 07/10/23 08:19 Dose: 200 mg Documented By: MARVA Lurasidone HCl (Lurasidone Hcl 40 Mg Tablet) 40 mg PO DAILY [facility] Last Admin: 07/10/23 08:18 Dose: 40 mg Documented By: MARVA Metformin HCl (Metformin Hcl 500 Mg Tablet) 500 mg PO BID [facility] Last Admin: 07/10/23 08:18 Dose: 500 mg Documented By: MARVA Methocarbamol (Methocarbamol 750 Mg Tablet) 750 mg PO DAILY [facility] Last Admin: 07/10/23 08:19 Dose: 750 mg Documented By: MARVA Multivitamins/Vitamin C (Multivitamin Tablet) 1 tab PO DAILY [facility] Last Admin: 07/10/23 08:18 Dose: 1 tab Documented By: MARVA Nifedipine (Nifedipine Er 30 Mg Tab.Er.24) 60 mg PO DAILY [facility]; Protocol Last Admin: 07/10/23 08:18 Dose: 60 mg Documented By: MARVA Oxybutynin Chloride (Oxybutynin Chloride Er 5 Mg Tab.Er.24) 10 mg PO DAILY [facility] Last Admin: 07/10/23 08:18 Dose: 10 mg Documented By: MARVA Sodium Chloride (0.9 % Sodium Chloride Flush 3 Ml Syringe) 3 ml IVFLUSH QSHIFT [facility] Last Admin: 07/10/23 08:19 Dose: 3 ml Documented By: MARVA Thiamine HCl (Thiamine Hcl 100 Mg Tablet) 100 mg PO DAILY [facility] Last Admin: 07/10/23 08:18 Dose: 100 mg Documented By: MARVA Trazodone HCl (Trazodone Hcl 100 Mg Tablet) 200 mg PO BEDTIME [facility] Last Admin: 07/09/23 22:06 Dose: 200 mg Documented By: FERNANDA Vitamin D (Cholecalciferol (Vitamin D3) 25 Mcg Tablet) 25 mcg PO DAILY [facility] Last Admin: 07/10/23 08:18 Dose: 25 mcg Documented By: MARVA Labs 07/07/23 06:23 07/07/23 06:23 Labs: Laboratory Results - last 24 hr 07/09/23 07/09/23 07/10/23 16:40 20:45 07:36 POC Glucose 186 H 147 H 112 07/10/23 11:36 POC Glucose 204 H Assessment and Plan (1) Acute hypoxemic respiratory failure: Status: Acute (2) COVID: Status: Acute Plan 67M PMH DM2, HTN, HLD, morbid obesity, arthritis of the back, unspecified CHF, and depression who presented to the ED with?worsening SOB, difficulty breathing, and nonproductive cough x2 days. Acute hypoxic respiratory failure due to covid DuoNebs, dexamethasone day 9, completed remdesivir Benzonatate, guaifenesin for cough wean O2 as tolerated - down to RA history of pe no longer on coumadin HTN labetolol, nifedipine morbid obesity weight loss DM Hold metformin sliding scale insulin Diabetic diet Mood disorder latuda Full Code DVT Prophylaxis: Lovenox reason for continued hospitalization: pending placemet to rehab on 07/11/23 Time Spent With Patient Time: Total time managing care of this patient today ____ minutes. Quality Stroke Does the patient have a stroke diagnosis?: No VTE Prior VTE?: Yes VTE Risk Level:: Medical - moderate - high VTE Device Contraindication: Treatment Not Indicated VTE Drug Contraindication: N/A - Med Ordered
[2023-07-10] MEDS: Enoxaparin Sodium 40 MG/0.4 ML SYRINGE SUBCUT (11:57)
[2023-07-10] MEDS: Insulin Lispro 100 UNIT/ML 3 ML VIAL SUBCUT (11:57)
[2023-07-10 15:28] VITALS: BP 143/73; PULSE 63; RESP 20; TEMP 36.8; O2SAT 95
[2023-07-10 16:08] LABS: Glucose, Whole Blood 115 mg/dL (60-115)
[2023-07-10 20:00] VITALS: BP 141/58; PULSE 62; RESP 20; TEMP 36.8; O2SAT 94
[2023-07-10 20:39] LABS: Glucose, Whole Blood 140 mg/dL (60-115)
[2023-07-10] MEDS: traZODone HCL 100 MG TABLET 200 MG PO (21:06)
[2023-07-10] MEDS: Amitriptyline HCl 25 MG TABLET PO (21:06)
[2023-07-10 23:18] VITALS: BP 141/67; PULSE 52; RESP 22; TEMP 35.9; O2SAT 94
[2023-07-11 07:15] LABS: Glucose, Whole Blood 90 mg/dL (60-115)
[2023-07-11 07:37] VITALS: BP 182/86; PULSE 62; RESP 20; TEMP 36.3; O2SAT 94
--- NOTE | 2023-07-11 09:28 | P.DS_ITS ---
DS: Providers Provider Date of Service: 07/12/23 Date of admission: 07/01/23 17:41 Primary care physician: Bharat Magallanes MD DS: Diagnosis Discharge Diagnosis (1) Acute hypoxemic respiratory failure: Status: Acute (2) COVID: Status: Acute DS: Summary Hospital Course Hospital Course: from initial hpi: 67-year-old male with a PMH significant for [id number] diabetes type 2, HTN, HLD, arthritis of the back, unspecified CHF, and depression who presents to the ED with worsening SOB, difficulty breathing, and nonproductive cough x2 days. Patient states his symptoms began upon waking 2 days prior when he felt congested and had a nonproductive cough, runny nose, and subjective fever and chills. SOB, difficulty breathing, and cough progressively worsened. Patient took an at home COVID test earlier this morning and tested positive. He then presented to the ED today d/t his difficulty breathing. Patient has a previous 5 pack year smoking history, quit 15 years ago. Does not carry a diagnosis of either asthma or COPD, not on home inhalers or home O2. Denies chest pain/pressure, palpitations. No noticeable increase in fatigue or tiredness. Denies nausea, vomiting, diarrhea, abdominal pain. The patient lives in a sober home with 28 other residence. In the ED the patient was febrile at 01:01 0.2, tachypneic up to 28, elevated heart rate up to 97, and hypertensive up to 151/86, satting as low as 86% O2 on RA. Patient placed on 3 L NC with improvement to 92% O2. Labs were significant for H&H of 12.7/39.0, random glucose 189. No leukocytosis. Electrolytes WNL. Lactic acid WNL 01.8. Hepatic function WNL. CPK WNL at 167. Troponin negative. BNP WNL at 34. Patient tested positive for COVID. Patient tested negative for influenza types A and B. Coags normal. CXR showed mild patchy infiltrate in the lower left lung suspicious for pneumonia. CT of head showed no acute intracranial process. EKG demonstrated normal sinus rhythm without evidence of ST elevations or depressions. Pt was treated with acetaminophen, ceftriaxone, and azithromycin. Pt will be admitted to the hospital for treatment and further evaluation of acute hypoxic respiratory failure in the setting of COVID infection. hospital course: Patient was admitted for acute hypoxic respiratory failure due to COVID. Dexamethasone, remdesivir, DuoNebs and was able to be weaned down to O2. Patient is recovered at time of discharge. Due to deconditioning will be discharged to snf facility for short-term rehab. He has a history of pulmonary embolism and is no longer on Coumadin. For hypertension is contin ue labetalol and nifedipine. For morbid obesity weight loss recommended for diabetes he was continue insulin. For mood disorder he was continued on Latuda. Patient is feeling better will be discharged to rehab. Time Spent with Patient Time attestation: Total time managing care of this patient today ____ minutes. Discharge coordination time: Greater than 30 minutes Quality: Safe Use of Opioids Does Pt have an Active Cancer Diagnosis on the Problem List?: No Quality: Stroke Does the patient have a stroke diagnosis?: No Physical Exam Vital Signs: Vital Signs: Last Vital Signs Temp 97.4 F 07/11/23 07:37 Pulse 62 07/11/23 07:37 Resp 20 07/11/23 07:37 BP 182/86 H 07/11/23 07:37 Pulse Ox 94 07/11/23 07:37 O2 Del Method Room Air 07/11/23 07:37 O2 Flow Rate 2 07/08/23 15:10 BMI result Body Mass Index 40.5 Const: Other: Constitutional : Awake, interactive, not in distress Neck : Normal inspection, Supple Cardiovascular : RRR, no JVP, no lower extremity edema Respiratory : fair bilateral air entry, basal fine, no wheezes , on RA Gastrointestinal: soft, lax, Normal bowel sounds, Non tender Skin : Warm, Dry Neurological : Alert & oriented x3, No focal deficit DS: Data Data Completed and Pending Labs on day of discharge: Laboratory Results - last 24 hr 07/10/23 07/10/23 07/10/23 11:36 16:04 20:33 POC Glucose 204 H 115 140 H 07/11/23 07:05 POC Glucose 90 Discharge Plan Discharge Anticipated Discharge Date/Time: 07/11/23 09:26 Patient Disposition: Xfer SNF Discharge Diagnosis: covid Referrals: [facility] [Outside] - 1 Day (SHORT TERM REHAB) Bharat Magallanes MD [Primary Care Provider] - 1 Week Discharge Medications: Continued multivitamin [One Daily Multivitamin] Tablet 1 tab PO DAILY nifedipine 30 mg tablet extended release 24hr 30 mg PO DAILY celecoxib 200 mg capsule 200 mg PO DAILY metformin 500 mg tablet 500 mg PO BID labetalol 200 mg tablet 200 mg PO BID oxybutynin chloride 10 mg tablet extended release 24hr 10 mg PO DAILY thiamine HCl (vitamin B1) 100 mg tablet 100 mg PO DAILY acetaminophen 500 mg tablet 1,000 mg PO TID PRN (Reason: PAIN) amitriptyline 25 mg tablet 25 mg PO BEDTIME methocarbamol 750 mg tablet 750 mg PO DAILY trazodone 100 mg tablet 200 mg PO BEDTIME tacrolimus 0.1 % ointment 1 appl topical BID mometasone 0.1 % ointment 1 appl topical BID cholecalciferol (vitamin D3) [Vitamin D3] 25 mcg (1,000 unit) capsule 25 mcg PO DAILY escitalopram oxalate 10 mg tablet 10 mg PO DAILY fenofibric acid (choline) 135 mg capsule,delayed release(DR/EC) 135 mg PO DAILY lurasidone 40 mg tablet 40 mg PO DAILY Discharge Orders: Discharge Order (Routine); Ordered 07/11/23 Ordered By: Tejinder Stern Diet: Advance to usual diet Activity on Discharge: As tolerated Stand Alone Forms: Patient Portal Discharge page Care Plan Goals: recovery Health Concerns: covid Plan of Treatment: rehab Assessment: see above
[2023-07-11] MEDS: NIFEdipine ER 30 MG TAB.ER.24 60 MG PO (09:46)
[2023-07-11] MEDS: oxyBUTYnin chloride ER 5 MG TAB.ER.24 10 MG PO (09:46)
[2023-07-11] MEDS: Labetalol HCL 200 MG TABLET PO ×2 (09:47→20:22)
[2023-07-11] MEDS: Thiamine HCL 100 MG TABLET PO (09:47)
[2023-07-11] MEDS: Lurasidone HCl 40 MG TABLET PO (09:47)
[2023-07-11] MEDS: Multivitamin TABLET 1 TAB PO (09:47)
[2023-07-11] MEDS: metFORMIN HCl 500 MG TABLET PO ×2 (09:47→20:22)
[2023-07-11] MEDS: methocarbamoL 750 MG TABLET PO (09:47)
[2023-07-11] MEDS: Escitalopram Oxalate 10 MG TABLET PO (09:47)
[2023-07-11] MEDS: Cholecalciferol (Vitamin D3) 25 MCG TABLET PO (09:47)
[2023-07-11] MEDS: Celecoxib 200 MG CAPSULE PO (09:47)
[2023-07-11] MEDS: dexAMETHasone sod phosphate 4 MG/ML VIAL 6 MG IVPUSH (09:48)
[2023-07-11] MEDS: 0.9 % Sodium Chloride Flush 3 ML SYRINGE IVFLUSH ×3 (09:48→23:39)
--- NOTE | 2023-07-11 09:53 | MHC.CM.PN ---
Addendum entered by Octavia Saenz RN 07/11/23 15:09: PER ENEIDA YUMI AUTH IS STILL PENDING. Original Note: PT MEDICALLY CLEARED FOR D/C TO [facility], PT HAS NO PREFERENCES OF FACILITY, CM AWAITING RESPONSE FROM [facility] FOR BED AVAILABILITY, PT WILL NEED [facility] FOR BLS TRANSPORT
[2023-07-11 10:56] LABS: Glucose, Whole Blood 221 mg/dL (60-115)
[2023-07-11] MEDS: Insulin Lispro 100 UNIT/ML 3 ML VIAL SUBCUT ×2 (11:51→20:22)
[2023-07-11] MEDS: Enoxaparin Sodium 40 MG/0.4 ML SYRINGE SUBCUT (11:51)
[2023-07-11 15:18] VITALS: BP 133/71; PULSE 60; RESP 20; TEMP 36.1; O2SAT 91
[2023-07-11 16:09] LABS: Glucose, Whole Blood 133 mg/dL (60-115)
[2023-07-11 19:14] VITALS: BP 133/73; PULSE 66; RESP 20; TEMP 36.3; O2SAT 90
[2023-07-11 19:49] LABS: Glucose, Whole Blood 171 mg/dL (60-115)
[2023-07-11] MEDS: traZODone HCL 100 MG TABLET 200 MG PO (20:22)
[2023-07-11] MEDS: Amitriptyline HCl 25 MG TABLET PO (20:22)
[2023-07-12 04:00] VITALS: BP 132/70; PULSE 68; RESP 18; TEMP 36.4; O2SAT 92
[2023-07-12 07:31] VITALS: BP 148/79; PULSE 58; RESP 19; TEMP 36.3; O2SAT 94
[2023-07-12 08:08] LABS: Glucose, Whole Blood 113 mg/dL (60-115)
[2023-07-12 08:27] VITALS: BP 148/79; PULSE 58; O2SAT 94
--- NOTE | 2023-07-12 08:48 | MHC.CM.PN ---
PT MEDICALLY CLEARED FOR D/C, PT [facility] AT [facility] PENDING [facility] FOR BLS TRANSPORT
[2023-07-12] MEDS: Thiamine HCL 100 MG TABLET PO (09:14)
[2023-07-12] MEDS: methocarbamoL 750 MG TABLET PO (09:14)
[2023-07-12] MEDS: Escitalopram Oxalate 10 MG TABLET PO (09:14)
[2023-07-12] MEDS: Celecoxib 200 MG CAPSULE PO (09:14)
[2023-07-12] MEDS: Cholecalciferol (Vitamin D3) 25 MCG TABLET PO (09:14)
[2023-07-12] MEDS: metFORMIN HCl 500 MG TABLET PO (09:14)
[2023-07-12] MEDS: dexAMETHasone sod phosphate 4 MG/ML VIAL 6 MG IVPUSH (09:14)
[2023-07-12] MEDS: Lurasidone HCl 40 MG TABLET PO (09:14)
[2023-07-12] MEDS: Multivitamin TABLET 1 TAB PO (09:14)
[2023-07-12] MEDS: oxyBUTYnin chloride ER 5 MG TAB.ER.24 10 MG PO (09:14)
[2023-07-12] MEDS: NIFEdipine ER 30 MG TAB.ER.24 60 MG PO (09:14)
[2023-07-12] MEDS: 0.9 % Sodium Chloride Flush 3 ML SYRINGE IVFLUSH (09:15)
[2023-07-12 11:42] LABS: Glucose, Whole Blood 150 mg/dL (60-115)
[2023-07-12] MEDS: Insulin Lispro 100 UNIT/ML 3 ML VIAL SUBCUT (13:13)
[2023-07-12] MEDS: Enoxaparin Sodium 40 MG/0.4 ML SYRINGE SUBCUT (13:13)
[2023-07-12 14:55] VITALS: BP 156/70; PULSE 69; RESP 20; TEMP 36.7; O2SAT 91
[2023-07-12 16:05] LABS: Glucose, Whole Blood 199 mg/dL (60-115)
--- NOTE | 2023-07-12 17:01 | P.PNIM_ITS ---
Subjective Subjective Date of Service: 07/12/23 Interval History: Seen and evaluated Feels better, on RA No fever or chills eating well Review of Systems Review of Systems: Yes all other systems are reviewed and are negative Physical Exam 2 Vital Signs: Vital Signs: Last Vital Signs Temp 98.0 F 07/12/23 14:55 Pulse 69 07/12/23 14:55 Resp 20 07/12/23 14:55 BP 156/70 H 07/12/23 14:55 Pulse Ox 91 L 07/12/23 14:55 O2 Del Method Room Air 07/12/23 14:55 O2 Flow Rate 2 07/08/23 15:10 BMI result Body Mass Index 40.5 Const: Other: Constitutional : Awake, interactive, not in distress Neck : Normal inspection, Supple Cardiovascular : RRR, no JVP, no lower extremity edema Respiratory : fair bilateral air entry, basal fine, no wheezes , on RA Gastrointestinal: soft, lax, Normal bowel sounds, Non tender Skin : Warm, Dry Neurological : Alert & oriented x3, No focal deficit Objective Data Active Medications Acetaminophen (Acetaminophen 325 Mg Tablet) 650 mg PO Q6H PRN PRN Reason: Pain, Mild (Pain Scale 1-3) Last Admin: 07/05/23 08:45 Dose: 650 mg Documented By: HARRISON Amitriptyline HCl (Amitriptyline Hcl 25 Mg Tablet) 25 mg PO BEDTIME [facility] Last Admin: 07/11/23 20:22 Dose: 25 mg Documented By: ANDRÉS Benzonatate (Benzonatate 100 Mg Capsule) 100 mg PO TID PRN PRN Reason: Cough Last Admin: 07/05/23 22:23 Dose: 100 mg Documented By: FERNANDA Comments: pt did not ask for guaifenesin, wrong patient for that response. Celecoxib (Celecoxib 200 Mg Capsule) 200 mg PO DAILY [facility] Last Admin: 07/12/23 09:14 Dose: 200 mg Documented By: LIZBETH Dexamethasone Sodium Phosphate (Dexamethasone Sod Phosphate 4 Mg/Ml Vial) 6 mg IVPUSH DAILY [facility] Last Admin: 07/12/23 09:14 Dose: 6 mg Documented By: LIZBETH Dextrose (Dextrose 50 % 25 Gm/50 Ml Syringe) 25 gm IVPUSH Q15M PRN; Protocol PRN Reason: per Hypoglycemia Standing Ord. Docusate Sodium (Docusate Sodium 100 Mg Capsule) 100 mg PO DAILY PRN PRN Reason: Constipation Last Admin: 07/09/23 22:19 Dose: 100 mg Documented By: FERNANDA Enoxaparin Sodium (Enoxaparin Sodium 40 Mg/0.4 Ml Syringe) 40 mg SUBCUT Q24H [facility] Last Admin: 07/12/23 13:13 Dose: 40 mg Documented By: DEONNA Escitalopram Oxalate (Escitalopram Oxalate 10 Mg Tablet) 10 mg PO DAILY [facility] Last Admin: 07/12/23 09:14 Dose: 10 mg Documented By: LIZBETH Glucose (Glucose Gel 15 Gm Gel..Gram.) 15 gm PO Q15M PRN; Protocol PRN Reason: per Hypoglycemia Standing Ord. Guaifenesin/Dextromethorphan (Guaifenesin Dm 200/20/10 Ml 10 Ml Syrup) 10 ml PO Q4H PRN PRN Reason: Cough Last Admin: 07/05/23 08:46 Dose: 10 ml Documented By: HARRISON Insulin Human Lispro (Insulin Lispro 100 Unit/Ml 3 Ml Vial) 0 unit SUBCUT QIDACHS [facility]; Protocol Last Admin: 07/12/23 13:13 Dose: 2 unit Documented By: DEONNA Labetalol HCl (Labetalol Hcl 200 Mg Tablet) 200 mg PO BID [facility]; Protocol Last Admin: 07/12/23 09:02 Dose: Not Given Documented By: LIZBETH Non-Admin Reason: Hold med per Provider Lurasidone HCl (Lurasidone Hcl 40 Mg Tablet) 40 mg PO DAILY [facility] Last Admin: 07/12/23 09:14 Dose: 40 mg Documented By: LIZBETH Metformin HCl (Metformin Hcl 500 Mg Tablet) 500 mg PO BID [facility] Last Admin: 07/12/23 09:14 Dose: 500 mg Documented By: LIZBETH Methocarbamol (Methocarbamol 750 Mg Tablet) 750 mg PO DAILY [facility] Last Admin: 07/12/23 09:14 Dose: 750 mg Documented By: LIZBETH Multivitamins/Vitamin C (Multivitamin Tablet) 1 tab PO DAILY [facility] Last Admin: 07/12/23 09:14 Dose: 1 tab Documented By: LIZBETH Nifedipine (Nifedipine Er 30 Mg Tab.Er.24) 60 mg PO DAILY [facility]; Protocol Last Admin: 07/12/23 09:14 Dose: 60 mg Documented By: LIZBETH Oxybutynin Chloride (Oxybutynin Chloride Er 5 Mg Tab.Er.24) 10 mg PO DAILY [facility] Last Admin: 07/12/23 09:14 Dose: 10 mg Documented By: LIZBETH Sodium Chloride (0.9 % Sodium Chloride Flush 3 Ml Syringe) 3 ml IVFLUSH QSHIFT [facility] Last Admin: 07/12/23 09:15 Dose: 3 ml Documented By: LIZBETH Thiamine HCl (Thiamine Hcl 100 Mg Tablet) 100 mg PO DAILY [facility] Last Admin: 07/12/23 09:14 Dose: 100 mg Documented By: LIZBETH Trazodone HCl (Trazodone Hcl 100 Mg Tablet) 200 mg PO BEDTIME [facility] Last Admin: 07/11/23 20:22 Dose: 200 mg Documented By: ANDRÉS Vitamin D (Cholecalciferol (Vitamin D3) 25 Mcg Tablet) 25 mcg PO DAILY [facility] Last Admin: 07/12/23 09:14 Dose: 25 mcg Documented By: LIZBETH Labs 07/07/23 06:23 07/07/23 06:23 Labs: Laboratory Results - last 24 hr 07/11/23 07/12/23 07/12/23 19:45 07:59 11:35 POC Glucose 171 H 113 150 H 07/12/23 16:01 POC Glucose 199 H Assessment and Plan (1) Acute hypoxemic respiratory failure: Status: Acute (2) COVID: Status: Acute Plan 67M PMH DM2, HTN, HLD, morbid obesity, arthritis of the back, unspecified CHF, and depression who presented to the ED with?worsening SOB, difficulty breathing, and nonproductive cough x2 days. Acute hypoxic respiratory failure due to covid DuoNebs, dexamethasone day 9, completed remdesivir Benzonatate, guaifenesin for cough wean O2 as tolerated - down to RA history of pe no longer on coumadin HTN labetolol, nifedipine morbid obesity weight loss DM Hold metformin sliding scale insulin Diabetic diet Mood disorder latuda Full Code DVT Prophylaxis: Lovenox reason for continued hospitalization: pending placemet to rehab on 07/11/23 Time Spent With Patient Time: Total time managing care of this patient today ____ minutes. Quality Stroke Does the patient have a stroke diagnosis?: No VTE Prior VTE?: Yes VTE Risk Level:: Medical - moderate - high VTE Device Contraindication: Treatment Not Indicated VTE Drug Contraindication: N/A - Med Ordered
--- NOTE | 2023-07-20 10:24 | P.CDIM_ITS ---
PROVIDER RESPONSE TEXT: To clarify, the appropriate diagnosis supported by the clinical indicators: Other (explain): viral sepsis QUERY TEXT: PHYSICIAN'S DOCUMENTATION REQUEST Date of Query: 07/18/2023 02:10 PM EDT Patient Name: THOMAS GOMEZ Admit Date: 07/01/2023 Dear Tejinder Stern, A review of the medical record indicates additional documentation may be needed. Please review below and update the documentation accordingly. Documentation on progress note dated 07/04/23 included the diagnosis of sepsis. The patient's infectious clinical indicators include: Per Hospitalist Progress Note: Sepsis in the setting of community-acquired pneumonia CXR showing mild patchy infiltrate in the lower left lung ceftriaxone, azithromycin, started 07/01/2023 negative cultures Recognized standard criteria for this condition and other infectious definitions includes: Temperature 101.2 Heart rate 97 Patient's Discharge Summary on 07/12/23 did not include the diagnosis of Sepsis. Based on the above information and the recognized standard for sepsis, could you please clarify if th is diagnoses is still accurate and reflective of the patient's condition to ensure quality of the medical record. Sepsis is/was present and is a clinical diagnosis based on After study Sepsis has been ruled out Other (explain)Clinically unable to determine (explain)Thank you, Maria Dolores Paulino RN Use of terms such as suspected, likely, concern for, or probable (associated with a specific diagnosi s that is being evaluated, monitored, or treated as if it exists) are acceptable and can be coded in the inpatient se tting, when documented at the time of discharge. Please use your independent medical judgment in providing your response. THIS QUERY IS PART OF THE PERMANENT MEDICAL RECORD
== END 2023-07-12 17:53 | disposition skilled nursing facility (03) | DRG 871 ==
LOC: HO.ED 16:55 → HO.EDOVER 18:01 → HO.S3 18:21 → HO.IMC 18:26
PROVIDERS: Physician Assistant Medical; Student in an Organized Health Care Education/Training Program; Admitting Provider Student in an Organized Health Care Education/Training Program; Emergency Provider Emergency Medicine; PCP Internal Medicine; Visit Provider Internal Medicine
DX: A41.89 Other specified sepsis (principal); J15.9 Unspecified bacterial pneumonia; J96.01 Acute respiratory failure with hypoxia; U07.1 COVID-19; Z68.41 Body mass index [BMI] 40.0-44.9, adult; F32.A Depression, unspecified; E66.01 Morbid (severe) obesity due to excess calories; I11.0 Hypertensive heart disease with heart failure; I50.9 Heart failure, unspecified; Z86.711 Personal history of pulmonary embolism; Z79.84 Long term (current) use of oral hypoglycemic drugs; Z79.899 Other long term (current) drug therapy
CPT/HCPCS: 36415; 70450; 71045; 80048; 80053; 82550; 82947; 83605; 83615; 83735; 83880; 84145; 84484; 85025; 85027; 85379; 85610; 86140; 87040; 87502; 87635; 93005; 94640; 97116; 97162; 97530; 99285; J0248; J0456; J0696; J1100; J1650; J1940

== ENCOUNTER → 2023-07-01 17:41 | Outpatient (BNV) | payer OTHER, SELFPAY | PROVIDERS: Admitting Provider Student in an Organized Health Care Education/Training Program; Emergency Provider Emergency Medicine; PCP Internal Medicine; Visit Provider Student in an Organized Health Care Education/Training Program | DX: J96.01 Acute respiratory failure with hypoxia (principal); U07.1 COVID-19 | CPT/HCPCS: 99223; 99231; 99232; 99233; 99239 ==

== ENCOUNTER 2024-05-02 16:08 | Emergency (ER) | payer OTHER, SELFPAY ==
--- NOTE | ~2024-05-02 | US_ITS ---
EXAMINATION: US VENOUS ULTRASOUND WITH DOPPLER LOWER EXTREMITY, BILATERAL CLINICAL INFORMATION: Bilateral lower extremity edema COMPARISON: None available. TECHNIQUE: Ultrasound of the deep veins is performed from the hip to the calf with compression sonography and color and pulse Doppler assessment. Spectral analysis with color-flow imaging is performed. FINDINGS: RIGHT: There is normal venous compression and respiratory variation and augmented flow. The visualized common femoral vein, superficial femoral vein, profunda femoral vein, popliteal vein, and the trifurcation region shows no evidence of deep venous thrombosis. Peroneal veins are not visualized secondary to marked edema. There is no significant popliteal fossa cyst. LEFT: There is normal venous compression and respiratory variation and augmented flow. The visualized common femoral vein, superficial femoral vein, profunda femoral vein, popliteal vein, and the trifurcation region shows no evidence of deep venous thrombosis. Peroneal veins are not visualized secondary to marked edema. There is no significant popliteal fossa cyst. If the patient's symptoms persist, followup ultrasound in 5 days 7 days might be of value to exclude proximal propagation from a non-visualized calf vein. US/US venous duplex LE BI IMPRESSION: No DVT demonstrated in either lower extremity.
--- NOTE | ~2024-05-02 | XR_ITS ---
EXAMINATION: CHEST 2 VIEWS CLINICAL INFORMATION: SOB. COMPARISON: 07/05/2023. TECHNIQUE: PA and lateral views of the chest obtained. FINDINGS: The lungs are well expanded. Mild undulation of the right hemidiaphragm. No focal infiltrate, effusion, edema, or pneumothorax. Cardiac and mediastinal silhouettes are within normal limits for technique. No acute bony abnormality seen XR/XR chest 2V IMPRESSION: No evidence of acute disease.
[2024-05-02 16:27] VITALS: BP 152/57; PULSE 80; RESP 16; TEMP 36.6; O2SAT 91; BMI 40.5
--- NOTE | 2024-05-02 16:27 | ED.GENADULT ---
HPI - General Adult General Chief complaint: General Medical Stated complaint: bilateral foot and calf swelling Time Seen by Provider: 05/02/24 22:53 Source: patient Mode of arrival: ambulatory Limitations: no limitations History of Present Illness ED Provider: tano SNEED narrative: Patient obese with history of psoriasis comes here for increased leg swelling for last few weeks with slight redness on the left leg no chest pain no shortness a breath no fever or chills Related Data Home Medications ?Medication ?Instructions ?Recorded ?Confirmed acetaminophen 500 mg tablet 1,000 mg PO TID PRN PAIN 07/01/23 07/01/23 amitriptyline 25 mg tablet 25 mg PO BEDTIME 07/01/23 07/01/23 celecoxib 200 mg capsule 200 mg PO DAILY 07/01/23 07/01/23 cholecalciferol (vitamin D3) 25 25 mcg PO DAILY 07/01/23 07/01/23 mcg (1,000 unit) capsule (Vitamin D3) escitalopram oxalate 10 mg tablet 10 mg PO DAILY 07/01/23 07/01/23 fenofibric acid (choline) 135 mg 135 mg PO DAILY 07/01/23 07/01/23 capsule,delayed release labetalol 200 mg tablet 200 mg PO BID 07/01/23 07/01/23 lurasidone 40 mg tablet 40 mg PO DAILY 07/01/23 07/01/23 metformin 500 mg tablet 500 mg PO BID 07/01/23 07/01/23 methocarbamol 750 mg tablet 750 mg PO DAILY 07/01/23 07/01/23 mometasone 0.1 % topical ointment 1 appl topical BID 07/01/23 07/01/23 multivitamin (One Daily 1 tab PO DAILY 07/01/23 07/01/23 Multivitamin tablet) nifedipine 30 mg tablet,extended 30 mg PO DAILY 07/01/23 07/01/23 release 24 hr oxybutynin chloride 10 mg 10 mg PO DAILY 07/01/23 07/01/23 tablet,extended release 24 hr tacrolimus 0.1 % topical ointment 1 appl topical BID 07/01/23 07/01/23 thiamine HCl (vitamin B1) 100 mg 100 mg PO DAILY 07/01/23 07/01/23 tablet trazodone 100 mg tablet 200 mg PO BEDTIME insomina 07/01/23 07/01/23 Previous Rx's ?Medication ?Instructions ?Recorded cephalexin 500 mg capsule 500 mg PO QID 10 days #40 caps 05/02/24 doxycycline hyclate 100 mg tablet 100 mg PO BID #20 tabs 05/02/24 hydrochlorothiazide 50 mg tablet 50 mg PO QAM #30 tabs 05/02/24 Allergies Allergy/AdvReac Type Severity Reaction Status Date / Time No Known Allergies Allergy Verified 05/02/24 16:28 Review of Systems Review of Systems: Yes all other systems are reviewed and are negative [facility] Social History Social History Household Members: Other Housing: Other Housing Other:: sober house Do you presently have visiting nurse or other home services: No Patient Tobacco Use Status: Former Tobacco user Tobacco use type: Cigarette e-Cigarette/Vaping Use: Never Used Substance Use Type: Former Substance User Advance Directives: No Advance Directives Information Provided: No Do you have a plan to hurt others: No Plan service: No Physical Exam ED Vital Signs: Vital Signs - 24 hr 05/02/24 16:27 05/02/24 21:31 05/02/24 22:00 Temperature 97.9 F 97.4 F 97.6 F Pulse Rate 80 61 60 Respiratory Rate 16 20 18 Blood Pressure 152/57 H 150/75 H 157/66 H Pulse Oximetry 91 L 93 93 Oxygen Delivery Method Room Air Nasal Cannula Room Air BMI result Body Mass Index 40.5 Appearance: Alert. Oriented X3. No acute distress. Eyes: No pallor or icterus ENT: Pharynx normal. Oral Mucosa moist Neck: Normal inspection. Neck supple. CVS: Normal heart rate and rhythm. Pulses normal. Respiratory: No respiratory distress. Equal air entry bilateral, no wheezing/rales/rhonchi Abdomen: Soft and nontender. Bowel sounds are present, no mass palpable, no CVA tenderness Skin: Skin warm and dry. Erythema of lower extremities patient left more than right no open wound, psoriatic lesion++ Normal skin turgor. Extremities: 3+ lower extremity edema. No calf tenderness Neuro: Oriented X 3. No motor deficit. Course Course Course Narrative: This is an RME: Additional HPI, ROS, PE not included below will be deferred to primary provider. RME assessment and note performed by: Linda Ford, PA-C This is a [id number] with a hx of CHF, HTN, DM , who presents to the ER with complaints of BL leg swelling. Reporting he has been on a high salt diet. Just moved into an apartment, had pizza for breakfast, lunch and dinner for the last 3 days. Legs are now oozing. BL legs with 3+ pitting edema, DP pulses present Plan: Labs Medical Decision Making Differential Diagnosis Differential Diagnoses: The differential diagnosis associated with the presentation includes Lab Data MDM Lab Attestation statement: I reviewed the patient's lab results. 05/02/24 17:46 05/02/24 17:46 Labs: Lab Results 05/02/24 Range/Units 17:46 WBC 4.8 (4.8-10.8) X10*3/uL RBC 3.87 L (4.60-5.80) X10*6/uL Hgb 12.0 L (14.0-18.0) g/dl Hct 35.3 L (42.0-52.0) % MCV 91.2 (80.0-98.0) fL MCH 31.0 (27.0-33.0) pg MCHC 34.0 (31.0-36.0) g/dl RDW 14.7 (11.0-16.0) % Plt Count 166 (160-400) X10*3/uL MPV 9.0 L (9.4-12.4) fL Immature Gran % (Auto) 1.2 H (0.0-0.4) % Neut % (Auto) 64.9 (45-73) % Lymph % (Auto) 22.0 (20-40) % Nelson % (Auto) 9.6 (2-11) % Eos % (Auto) 1.9 (0-4) % Baso % (Auto) 0.4 (0-2) % Lymph # (Auto) 1.1 L (1.2-4.9) X10*3/uL Nelson # (Auto) 0.5 (0.1-1.2) X10*3/uL Eos # (Auto) 0.1 (0.0-0.4) X10*3/uL Baso # (Auto) 0.0 (0.0-0.2) X10*3/uL Abs Immat Gran (auto) 0.06 H (0.00-0.03) X10*3/uL Absolute Neuts (auto) 3.1 (2.0-8.3) x10*3/uL Absolute Nucleated RBC 0.000 (0.0-0.012) X10*3/uL Nucleated RBC % (auto) 0.0 (0.0-0.2) /100WBC PT 11.9 (11.1-13.3) SEC INR 1.0 (0.9-1.1) APTT 27.5 (26.0-36.8) SEC Sodium 141 (135-145) mmol/L Potassium 3.8 (3.3-5.1) mmol/L Chloride 105 (96-108) mmol/L Carbon Dioxide 27 (22-29) mmol/L Anion Gap 13 (12-20) BUN 7 L (9-16) mg/dL Creatinine 0.81 (0.5-1.4) mg/dL Estim Creat Clear Calc 115.4 Estimated GFR > 60 Random Glucose 90 (60-115) mg/dL Calcium 9.0 (8.4-10.2) mg/dL Magnesium 1.9 (1.6-2.6) mg/dL Total Bilirubin 0.3 (0.0-1.0) mg/dL Direct Bilirubin 0.1 (0.0-0.5) mg/dL AST 12 (5-37) U/L ALT 17 (0-40) U/L Alkaline Phosphatase 60 (39-117) U/L Troponin I High Sens < 2.7 (<3.5-35.0) ng/L B-Natriuretic Peptide 167 H (<100) pg/mL Total Protein 6.2 L (6.5-8.0) g/dL Albumin 3.7 (3.5-5.0) g/dL Discharge Plan Discharge Clinical Impression: Leg edema, Cellulitis Patient Disposition: Home, Self-Care Instructions: Cellulitis (ED), Leg Edema (ED) Additional Instructions: Keep the legs elevated Antibiotic as prescribed Take water pill daily in the a.m. Check your weight daily if you gain more than 2 lb a week report to your PCP Follow with PCP Prescriptions: New cephalexin 500 mg capsule 500 mg PO QID 10 Days Qty: 40 0RF doxycycline hyclate 100 mg tablet 100 mg PO BID Qty: 20 0RF hydrochlorothiazide 50 mg tablet 50 mg PO QAM Qty: 30 0RF No Action multivitamin [One Daily Multivitamin] Tablet 1 tab PO DAILY nifedipine 30 mg tablet extended release 24hr 30 mg PO DAILY celecoxib 200 mg capsule 200 mg PO DAILY metformin 500 mg tablet 500 mg PO BID labetalol 200 mg tablet 200 mg PO BID oxybutynin chloride 10 mg tablet extended release 24hr 10 mg PO DAILY thiamine HCl (vitamin B1) 100 mg tablet 100 mg PO DAILY acetaminophen 500 mg tablet 1,000 mg PO TID PRN (Reason: PAIN) amitriptyline 25 mg tablet 25 mg PO BEDTIME methocarbamol 750 mg tablet 750 mg PO DAILY trazodone 100 mg tablet 200 mg PO BEDTIME tacrolimus 0.1 % ointment 1 appl topical BID mometasone 0.1 % ointment 1 appl topical BID cholecalciferol (vitamin D3) [Vitamin D3] 25 mcg (1,000 unit) capsule 25 mcg PO DAILY escitalopram oxalate 10 mg tablet 10 mg PO DAILY fenofibric acid (choline) 135 mg capsule,delayed release(DR/EC) 135 mg PO DAILY lurasidone 40 mg tablet 40 mg PO DAILY Print Language: Hebrew
--- NOTE | 2024-05-02 16:32 | ECG_ITS ---
Test Reason : CP/SOB Blood Pressure : / mmHG Vent. Rate : 069 BPM Atrial Rate : 069 BPM P-R Int : 176 ms QRS Dur : 078 ms QT Int : 390 ms P-R-T Axes : 027 048 033 degrees QTc Int : 417 ms Normal sinus rhythm Normal ECG When compared with ECG of 01-JUL-2023 14:05, No significant change was found Referred By: Linda Ford Electronically Signed By:Nilo Ariza
[2024-05-02 17:51] LABS: MANUAL DIFF FLAG NO
[2024-05-02 17:53] LABS: Basophils Percent Auto 0.4 % (0-2); Eosinophils Absolute Auto 0.1 X10*3/uL (0.0-0.4); Eosinophils Percent Auto 1.9 % (0-4); Hematocrit 35.3 % (42.0-52.0); Imm Gran Abs Auto 0.06 X10*3/uL (0.00-0.03); Imm Gran Pct Auto 1.2 % (0.0-0.4); Lymphocytes Absolute Auto 1.1 X10*3/uL (1.2-4.9); Mean Corpuscular Volume 91.2 fL (80.0-98.0); Monocytes Absolute Auto 0.5 X10*3/uL (0.1-1.2); Monocytes Percent Auto 9.6 % (2-11); Neutrophils Absolute Auto 3.1 x10*3/uL (2.0-8.3); Neutrophils Percent Auto 64.9 % (45-73); Platelet Count 166 X10*3/uL (160-400); Red Blood Count 3.87 X10*6/uL (4.60-5.80); Red Cell Distribution Width 14.7 % (11.0-16.0); White Blood Count 4.8 X10*3/uL (4.8-10.8)
[2024-05-02 17:58] LABS: Prothrombin Time 11.9 SEC (11.1-13.3)
[2024-05-02 18:00] LABS: Partial Thromboplastin Time 27.5 SEC (26.0-36.8)
[2024-05-02 18:10] LABS: Alanine Aminotransferase 17 U/L (0-40); Albumin Level 3.7 g/dL (3.5-5.0); Alkaline Phosphatase 60 U/L (39-117); Anion Gap 13 (12-20); Aspartate Amino Transferase 12 U/L (5-37); Bilirubin Direct 0.1 mg/dL (0.0-0.5); Bilirubin Total 0.3 mg/dL (0.0-1.0); Blood Urea Nitrogen 7 mg/dL (9-16); Carbon Dioxide 27 mmol/L (22-29); Chloride 105 mmol/L (96-108); Creatinine Clr Calc Pharmacy 115.4; Estimated Glomerular Filt Rate > 60; Glucose Random 90 mg/dL (60-115); Magnesium 1.9 mg/dL (1.6-2.6); Potassium 3.8 mmol/L (3.3-5.1); Sodium 141 mmol/L (135-145); Total Protein 6.2 g/dL (6.5-8.0)
[2024-05-02 18:12] LABS: B Type Natriuretic Peptide 167 pg/mL (<100)
[2024-05-02 18:14] LABS: Troponin-I High Sensitivity < 2.7 ng/L (<3.5-35.0)
[2024-05-02 21:31] VITALS: BP 150/75; PULSE 61; RESP 20; TEMP 36.3; O2SAT 93
[2024-05-02 22:00] VITALS: BP 157/66; PULSE 60; RESP 18; TEMP 36.4; O2SAT 93
[2024-05-02 23:17] VITALS: BP 157/68; PULSE 65; RESP 20; TEMP 36.5; O2SAT 91
[2024-05-02] MEDS: cephALEXin 500 MG CAPSULE PO (23:18)
[2024-05-02] MEDS: Doxycycline Monohydrate 100 MG CAPSULE PO (23:18)
[2024-05-02 23:32] VITALS: BP 157/68; PULSE 65; RESP 20; TEMP 36.5; O2SAT 91
== END 2024-05-03 00:14 | disposition home or self-care (01) ==
PROVIDERS: Physician Assistant Medical; Emergency Provider Internal Medicine; PCP Internal Medicine
DX: R60.0 Localized edema (principal); L03.116 Cellulitis of left lower limb; L03.115 Cellulitis of right lower limb; M79.609 Pain in unspecified limb; R07.89 Other chest pain; R06.02 Shortness of breath; Z79.899 Other long term (current) drug therapy
CPT/HCPCS: 36415; 71046; 80048; 80076; 83735; 83880; 84484; 85025; 85610; 85730; 93005; 93970; 99284

== ENCOUNTER → 2024-05-02 16:32 | Outpatient (BNV) | payer OTHER, SELFPAY | PROVIDERS: Emergency Provider Internal Medicine; PCP Internal Medicine; Visit Provider Internal Medicine Cardiovascular Disease | DX: R06.02 Shortness of breath (principal) | CPT/HCPCS: 93010 ==